=== PATIENT | female | born 1960 | race African-American/Black ===

== ENCOUNTER 2019-06-29 11:23 | Outpatient (CLI) | payer OTHER, SELFPAY ==
--- NOTE | ~2019-06-29 | XR_ITS ---
EXAMINATION: XR chest 2V EXAM DATE: 06/29/2019 11:47 INDICATION: Shortness of breath. TECHNIQUE: Frontal and lateral projections of the chest obtained and reviewed. There is no prior cecilia dy for comparison. FINDINGS: Severe chronic hyperinflation. Small amount of biapical scarring. The lungs are clear. Th ere are no pleural effusions. The cardiomediastinal silhouette is within normal limits. There is no pneumothorax suspected. There is aortic arterial sclerosis. Bones appear mildly osteopenic. IMPRESSION: 1. No acute cardiopulmonary findings. 2. Hyperinflation. 3. Possible osteopenia. Reviewed, dictated and finalized at location B. ING REPRESENTATIVE
== END 2019-06-29 11:24 | disposition home or self-care (01) ==
LOC: ANHIMG 11:31
PROVIDERS: PCP Internal Medicine; Visit Provider Internal Medicine
DX: R06.00 Dyspnea, unspecified (principal); F10.21 Alcohol dependence, in remission; Z87.891 Personal history of nicotine dependence; Z68.21 Body mass index [BMI] 21.0-21.9, adult
CPT/HCPCS: 71046

== ENCOUNTER 2019-09-09 15:32 | Emergency (ER) | payer OTHER, SELFPAY ==
[2019-09-09 15:32] VITALS: BP 184/92; PULSE 97; RESP 16; TEMP 36.3; O2SAT 100
[2019-09-09 15:44] VITALS: PULSE 91
[2019-09-09 15:45] VITALS: O2SAT 98
--- NOTE | 2019-09-09 15:56 | ED.SEIZURE ---
HPI - Seizure General Chief Complaint: Seizure Stated Complaint: SZ Time Seen by Provider: 09/09/19 15:53 Source: patient, EMS and old records reviewed (none) Mode of arrival: EMS History of Present Illness HPI Narrative: 58 m presents following a reported sz not witnessed by ems but reported to last a minute or so known h/o sx but hasn't been here reports no injury, not incont unsure when her last episode was among her belongings is a empty bottle of keppra which would have run out ~ 3 weeks ago if taken correctly no prior illness currently w/o complaints MD complaint: seizure Onset (ago): hour(s) Trauma: No Seizure History: Yes Related Data Home Medications Medication Instructions Recorded Confirmed albuterol sulfate 2 puff INHALATION QID 09/09/19 09/09/19 levetiracetam 1,000 mg PO BID 09/09/19 09/09/19 loperamide 2 mg PO Q6H PRN 09/09/19 09/09/19 metoprolol tartrate 25 mg PO DAILY 09/09/19 09/09/19 naproxen 500 mg PO BID 09/09/19 09/09/19 omeprazole 40 mg PO DAILY 09/09/19 09/09/19 trazodone 50 mg PO BID 09/09/19 09/09/19 Allergies Allergy/AdvReac Type Severity Reaction Status Date / Time No Known Allergies Allergy Verified 09/09/19 15:38 Review of Systems Constitutional: Constitutional: Denies chills and Denies fever(s) Eyes: Eyes: Denies change in vision Cardiovascular: Cardiovascular: Denies chest pain Respiratory: Respiratory: Denies cough and Denies dyspnea Gastrointestinal: Gastrointestinal: Denies diarrhea and Denies vomiting Neurologic: Denies headache(s), Denies focal weakness and Denies numbness PMFSH Social History Social History Gender identity (if verbalized by the patient): Female Exam Const: General: no acute distress, well developed and alert Nutritional Appearance: well nourished Orientation/consciousness: Other orientation findings (Alert) HENMT: Head: normal to inspection, normocephalic, atraumatic and no contusions Ears: external ears normal General nose exam: No nasal discharge present and no epistaxis Face and sinus: face symmetric Mouth: Yes lip normal, Yes tongue normal and Yes moist mucous membranes Throat: other (No exudate, no erythema) Eyes: Conjunctivae: conjunctivae normal Sclera: sclerae normal Pupils: Equal, round and reactive pupils present EOM: EOMs intact bilaterally Neck: Neck: full ROM, no lymphadenopathy and supple Thyroid: thyroid normal Chest: Chest palpation & inspection: no tenderness Resp: Effort & Inspection: normal respiratory effort Auscultation: clear to auscultation bilaterally, no rales, no rhonchi, no wheezes and other (breath sounds equal) Cardio: Rate: regular rate Rhythm: regular rhythm Heart sounds: no gallops and no murmurs GI: Inspection: non-distended GI Palp: No abdominal tenderness and Yes Soft to palpation Auscultation: other (bowel sounds present) Back/Spine/Pelvis: Back: no CVA tenderness Thoracic/Lumbar Spine: thoracic and lumbar spine normal to inspection Skin: General skin exam: normal color and no rashes or lesions noted Neuro: General: moves all extremities, no focal motor deficits and CN's II-XI intact bilaterally Cranial nerves: Yes facial symmetry Speech: normal speech Motor exam (neuro): Motor abnormalities not present Extrem: General: normal to inspection, full ROM and no pedal edema Psych: Appearance: disheveled Affect: normal affect Course Vital Signs Vital signs: Vital Signs Temperature 36.3 C L 09/09/19 15:32 Pulse Rate 97 09/09/19 15:32 Respiratory Rate 16 09/09/19 15:32 Blood Pressure 184/92 H 09/09/19 15:32 Pulse Oximetry 100 09/09/19 15:32 Temperature 36.3 C L 09/09/19 15:32 Pulse Rate 91 09/09/19 15:44 Respiratory Rate 16 09/09/19 15:32 Blood Pressure 184/92 H 09/09/19 15:32 Pulse Oximetry 98 09/09/19 15:45 MDM - Seizure Lab Data Result diagrams: 09/09/19 16:06
[2019-09-09 16:12] LABS: Basophils Percent Auto 0.4 % (0.2-1.2); Eosinophils Percent Auto 0.6 % (0-4.4); Hematocrit 37.7 % (37.0-47.0); Hemoglobin 11.9 g/dL (12.0-15.0); Immature Granulocyte Absolute 0.02 K/mm3 (0.00-0.031); Immature Granulocyte Percent A 0.4 % (0-0.5); Lymphocytes Absolute Auto 1.84 K/mm3 (0.9-3.2); Lymphocytes Percent Auto 35.1 % (18.3-44.2); Mean Corpuscular HGB Conc 31.6 g/dl (32-36); Mean Corpuscular Hemoglobin 27.3 pg (26-34); Mean Corpuscular Volume 86.5 fl (80-100); Mean Platelet Volume 10.1 fl (7.4-10.4); Monocytes Absolute Auto 0.3 K/mm3 (0.1-0.6); Monocytes Percent Auto 6.1 % (2.6-8.5); Neutrophils Percent Auto 57.4 % (45.5-73.1); Platelet Count Result 242 k/mm3 (150-375); Red Blood Count 4.36 M/mm3 (4.2-5.4); Red Cell Distribution Width 14.6 % (11.5-14.5); White Blood Count 5.2 K/mm3 (4.5-10.0)
[2019-09-09] MEDS: levETIRAcetam 500MG/NACL 100ML 500 MG/100 ML BAG 400 MG IVPB (16:18)
[2019-09-09] MEDS: levETIRAcetam 1000MG/NACL100ML 1,000 MG/100 ML BAG 400 MG IVPB (16:18)
[2019-09-09 16:24] LABS: Blood Urea Nitrogen 16 mg/dL (7-17); Calcium 9.6 mg/dL (8.4-10.2); Carbon Dioxide 25 mmol/L (22-30); Chloride 104 mmol/L (98-107); Estimated CRCL calculation 64 ml/min; Estimated Glomerular Filt Rate > 60; Glucose 99 mg/dL (65-105); Potassium 3.6 mmol/L (3.4-5.0); Sodium 138 mmol/L (137-145)
[2019-09-09 16:54] VITALS: BP 156/95; PULSE 79; RESP 20; O2SAT 98
== END 2019-09-09 17:05 | disposition home or self-care (01) ==
PROVIDERS: Emergency Provider Emergency Medicine; PCP Internal Medicine
DX: G40.909 Epilepsy, unspecified, not intractable, without status epilepticus (principal)
CPT/HCPCS: 36415; 80048; 85025; 96365; 99284; J1953

== ENCOUNTER 2019-11-08 19:07 | Inpatient (IN) | payer OTHER, SELFPAY ==
--- NOTE | ~2019-11-08 | CT_ITS ---
EXAMINATION: CT brain wo con EXAM DATE: 11/08/2019 20:33 INDICATION: Seizures. History of aneurysm. TECHNIQUE: Spiral CT of the head was performed without contrast. Axial, coronal and sagittal images were reviewed. Patient was scanned twice, due to patient motion. The dose-length product (DLP) for th is examination was 908.00 mGy-cm. The exposure was tailored according to patient size, and iterative reconstruction (ASIR) was used as additional dose reduction technique. There is no prior study for comparison. FINDINGS: Right MCA trifurcation region aneurysm clip with large overlying craniotomy, large amount o f right frontotemporal encephalomalacia likely from prior aneurysm rupture. There is no acute intrapa renchymal hemorrhage. No evidence of intraparenchymal brain mass lesion. Small old left cerebellar i nfarction. No evidence of acute infarction. Please note that initial head CT has limited sensitivity for small or acute infarctions. There is mild periventricular and subcortical hypodensity, nonspecif ic but probably related to small vessel ischemic disease. There is mild prominence of the sulci and ventricles related to cerebral atrophy. There is intracranial carotid arteriosclerosis. There are no extra-axial collections. There is no mass effect or midline shift. The orbits are unremarkable. Soft tissue is unremarkable. The visualized sinuses and mastoid air cells are well aerated. IMPRESSION: 1. Right frontotemporal encephalomalacia, aneurysm clip, surgical changes. 2. 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 3. Mild age-related findings. Reviewed, dictated and finalized at location A.
--- NOTE | ~2019-11-08 | XR_ITS ---
EXAMINATION: XR chest 1V portable EXAM DATE: 11/08/2019 20:35 INDICATION: Seizure. TECHNIQUE: Portable AP frontal chest x-ray was obtained. Comparison is made to prior examination from 06/29/2019. FINDINGS: The lungs are clear. There are no pleural effusions. Cardiac silhouette is prominent but magnified on this AP technique. There is no pneumothorax suspected. The bones are osteopenic. The re are bony degenerative changes. Mild hyperinflation. IMPRESSION: 1. No acute cardiopulmonary findings. 2. Bones appear osteopenic for age. 3. Hyperinflation. Reviewed, dictated and finalized at location A.
--- NOTE | ~2019-11-08 | CT_ITS ---
EXAMINATION: CT brain wo con DATE: 11/11/2019 03:47 INDICATION: Seizure. History of CVA. TECHNIQUE: Computed tomography (CT) of the head was performed without intravenous contrast. The dose- length product was 605.33 mGy-cm. The mA was adjusted according to patient size. Iterative reconstruc tion technique was employed. COMPARISON: CT dated 11/08/2019 FINDINGS: There are surgical changes of right frontal-temporal no acute intracranial hemorrhage, infa rction, mass or mass effect. Basilar cisterns are patent. No ventriculomegaly. There is a right front al octavia hole. Paranasal sinuses and mastoids are unremarkable. Craniotomy with underlying encephaloma lacia. Chronic right frontal lobe infarction. There are clips of the right middle cerebral artery. IMPRESSION: 1. No acute intracranial abnormality. No significant change. Reviewed, dictated and finalized at location A.
[2019-11-08 19:12] VITALS: BP 167/132; PULSE 147; PULSE 153; RESP 26; TEMP 36.8; O2SAT 99
[2019-11-08] MEDS: LORAZEPAM INJ 2 MG/ML VIAL (19:18)
--- NOTE | 2019-11-08 19:28 | ECG_ITS ---
Measurements Intervals [place] Rate: 143 P: 77 CT: 118 QRS: 20 QRSD: 77 T: 80 QT: 327 QTc: 506 Interpretive Statements SINUS OR ECTOPIC ATRIAL TACHYCARDIA WITH SHORT CT INTERVAL VENTRICULAR PREMATURE COMPLEX NONSPECIFIC ST & T-WAVE ABNORMALITY- ANTEROLAT/LAT LEADS BASELINE WANDER- V4-V6 ABNORMAL ECG Electronically Signed On 11-09-2019 7:05:49 CDT by Shaun Greene D.O.
[2019-11-08 19:31] VITALS: BP 157/97; PULSE 145; RESP 21; O2SAT 93
[2019-11-08] MEDS: SODIUM CHLORIDE 0.9% IV 1,000 ML 999 ML IV CONT (19:36)
--- NOTE | 2019-11-08 19:46 | ED.SEIZURE ---
HPI - Seizure General Chief Complaint: Seizure Stated Complaint: seizure Time Seen by Provider: 11/08/19 19:11 History of Present Illness HPI Narrative: Patient is a 59-year-old female who presents ER due to having a seizure. Upon arrival patient began seizing again. Diffuse body jerking with eyes deviated to the left. Patient initially unresponsive to sternal rub. Patient then started to come out of the seizure and was readily alert and oriented to self/place/year. She reports compliance with her Keppra. She still looking towards her left side despite answering questions. Accu-Chek was in the 120s for EMS. Seizure History: Yes Related Data Home Medications Medication Instructions Recorded Confirmed albuterol sulfate 2 puff INHALATION QID 09/09/19 09/09/19 levetiracetam 1,000 mg PO BID 09/09/19 09/09/19 loperamide 2 mg PO Q6H PRN 09/09/19 09/09/19 metoprolol tartrate 25 mg PO DAILY 09/09/19 09/09/19 naproxen 500 mg PO BID 09/09/19 09/09/19 omeprazole 40 mg PO DAILY 09/09/19 09/09/19 trazodone 50 mg PO BID 09/09/19 11/08/19 Allergies Allergy/AdvReac Type Severity Reaction Status Date / Time No Known Allergies Allergy Verified 09/09/19 15:38 Review of Systems Review of Systems: ROS unobtainable: Yes unobtainable due to medical condition PMFSH Past Medical History Medical History (Updated 11/08/19 @ 22:46 by Butch Muhammad MD) Brain aneurysm Hypertension Seizure disorder Surgical History Surgical History (Updated 11/08/19 @ 19:49 by Butch Muhammad MD) Surgical history unknown Social History Social History Gender identity (if verbalized by the patient): Female Exam Narrative: Exam Narrative: GENERAL: Seizine, well-nourished. HEAD: Normocephalic, atraumatic. EYES: PERRL and eyes deviating to the left. ENT: Mucous membranes moist. CHEST: Clear to auscultation. No respiratory distress. HEART: Tachycardic and regular. Normal peripheral pulses. ABDOMEN: Soft, nontender, nondistended, normal active bowel sounds. EXTREMITIES: Weakness in the left upper and lower extremity. No edema. SKIN: Warm, dry, no rash. NEURO: Diffuse body jerking, no extension/flexion, eyes deviated to the left. Oriented x 3. Course Course Emergency Course: Range of motion return to the upper and lower extremity on the left. Likely Rusty's paralysis from seizure. Patient at neurologic baseline. Vital Signs Vital signs: Vital Signs Temperature 98.2 F 11/08/19 19:12 Pulse Rate 147 H 11/08/19 19:12 Respiratory Rate 26 H 11/08/19 19:12 Blood Pressure 167/132 H 11/08/19 19:12 Pulse Oximetry 99 11/08/19 19:12 Temperature 97.3 F L 11/08/19 22:40 Pulse Rate 102 H 11/08/19 22:40 Respiratory Rate 19 11/08/19 22:40 Blood Pressure 186/89 H 11/08/19 22:40 Pulse Oximetry 99 11/08/19 22:40 MDM - Seizure Lab Data Result diagrams: 11/08/19 19:40 11/08/19 19:40 Labs: Lab Results 11/08/19 11/08/19 11/08/19 Range/Units 19:40 19:40 19:40 WBC 6.8 (4.5-10.0) K/mm3 RBC 4.70 (4.2-5.4) M/mm3 Hgb 13.3 (12.0-15.0) g/dL Hct 41.4 (37.0-47.0) % MCV 88.1 (80-100) fl MCH 28.3 (26-34) pg MCHC 32.1 (32-36) g/dl RDW 15.7 H (11.5-14.5) % Plt Count 270 (150-375) k/mm3 MPV 10.3 (7.4-10.4) fl Immature Gran % (Auto) 0.3 (0-0.5) % Neut % (Auto) 38.8 L (45.5-73.1) % Lymph % (Auto) 51.3 H (18.3-44.2) % [place] % (Auto) 8.4 (2.6-8.5) % Eos % (Auto) 0.9 (0-4.4) % Baso % (Auto) 0.3 (0.2-1.2) % Lymph # (Auto) 3.47 H (0.9-3.2) K/mm3 [place] # (Auto) 0.6 (0.1-0.6) K/mm3 Eos # (Auto) 0.1 (0-0.3) K/mm3 Baso # (Auto) 0.0 (0.0-0.1) K/mm3 Abs Immat Gran (auto) 0.02 (0.00-0.031) K/mm3 Absolute Neuts (auto) 2.6 (1.3-6.7) K/mm3 Absolute Nucleated RBC 0.0 (0.0-0.012) K/mm3 Nucleated RBC % 0.0 (0.0-0.2) % Sodium 147 H (137-14
[2019-11-08 19:52] LABS: Basophils Percent Auto 0.3 % (0.2-1.2); Eosinophils Absolute Auto 0.1 K/mm3 (0-0.3); Eosinophils Percent Auto 0.9 % (0-4.4); Hematocrit 41.4 % (37.0-47.0); Hemoglobin 13.3 g/dL (12.0-15.0); Immature Granulocyte Absolute 0.02 K/mm3 (0.00-0.031); Immature Granulocyte Percent A 0.3 % (0-0.5); Lymphocytes Absolute Auto 3.47 K/mm3 (0.9-3.2); Lymphocytes Percent Auto 51.3 % (18.3-44.2); Mean Corpuscular HGB Conc 32.1 g/dl (32-36); Mean Corpuscular Hemoglobin 28.3 pg (26-34); Mean Corpuscular Volume 88.1 fl (80-100); Mean Platelet Volume 10.3 fl (7.4-10.4); Monocytes Absolute Auto 0.6 K/mm3 (0.1-0.6); Monocytes Percent Auto 8.4 % (2.6-8.5); Neutrophils Absolute Auto 2.6 K/mm3 (1.3-6.7); Neutrophils Percent Auto 38.8 % (45.5-73.1); Platelet Count Result 270 k/mm3 (150-375); Red Cell Distribution Width 15.7 % (11.5-14.5); White Blood Count 6.8 K/mm3 (4.5-10.0)
[2019-11-08 20:04] LABS: Ethanol < 10 mg/dL (<10)
[2019-11-08 20:09] LABS: Albumin Level 4.6 g/dL (3.5-5.1); Alkaline Phosphatase 118 U/L (38-126); Aspartate Amino Transferase 34 U/L (14-36); Bilirubin,Total 0.5 mg/dL (0.2-1.3); Blood Urea Nitrogen 17 mg/dL (7-17); Carbon Dioxide 24 mmol/L (22-30); Chloride 110 mmol/L (98-107); Estimated CRCL calculation 63 ml/min; Estimated Glomerular Filt Rate > 60; Glucose 115 mg/dL (65-105); Potassium 4.6 mmol/L (3.4-5.0); Sodium 147 mmol/L (137-145)
[2019-11-08 20:12] LABS: Alanine Aminotransferase 20 U/L (4-35)
[2019-11-08 21:32] LABS: Add Urine Microscopic? YES; Appearance Urine Clear (Clear); Bacteria Urine Trace /hpf; Bilirubin Urine Negative (Negative); Blood Urine 3+ (Negative); Color Urine Yellow (Yellow); Glucose Urine UA Negative (Negative); Ketones Urine Negative (Negative); Leukocyte Esterase Ur 2+ LEU/UL (Negative); Mucus Urine Rare /lpf; Nitrate Urine Positive (Negative); Protein Urine 2+ mg/dL (Negative); RBC Urine >75 /hpf (0-2); Specific Grav Ur 1.018 (1.001-1.035); Squamous Epithelial Cell Urine Rare /hpf (Few); Urobilinogen Urine Negative mg/dL (<2.0); WBC Urine 51-75 /hpf
[2019-11-08 21:42] LABS: Amphetamine Screen Urine Negative (Negative); Barbiturate Screen Urine Negative (Negative); Benzodiazepines Screen Urine Positive (Negative); Cannabinoid Screen Urine Negative (Negative); Cocaine Screen Urine Negative (Negative); Methadone Screen Urine Negative (Negative); Opiate Screen Urine Negative (Negative); Phencyclidine Screen Urine Negative (Negative)
[2019-11-08 22:01] VITALS: BP 161/95; PULSE 102; RESP 26; TEMP 36.4; O2SAT 97
[2019-11-08 22:40] VITALS: BP 186/89; PULSE 102; RESP 19; TEMP 36.3; O2SAT 99
[2019-11-08] MEDS: levETIRAcetam 1000MG/NACL100ML 1,000 MG/100 ML BAG 400 MG IVPB (22:53)
[2019-11-08 23:02] VITALS: BP 197/97; PULSE 101; RESP 27; O2SAT 98
[2019-11-08] MEDS: LORAZEPAM INJ 2 MG/ML VIAL 1 MG IV PUSH (23:12)
[2019-11-08 23:22] VITALS: BP 154/94; PULSE 115; RESP 22; O2SAT 100
--- NOTE | 2019-11-08 23:23 | PC.NURSE ---
pt had another seizure in bed lasting around 35 seconds. edp notified.
[2019-11-08 23:55] LABS: Glucose Point of Care 109 (65-105)
[2019-11-09] VITALS (12 sets, daily range): BP systolic 140–164; BP diastolic 65–92; PULSE 70–116; RESP 16–22; TEMP 36.5–36.9; O2SAT 95–100; BMI 22.6
[2019-11-09] MEDS: levETIRAcetam 500MG/NACL 100ML 500 MG/100 ML BAG 400 MG IVPB (00:47)
[2019-11-09] MEDS: SODIUM CHLORIDE 0.9% IV 1,000 ML 100 ML IV CONT ×2 (02:33→15:50)
--- NOTE | 2019-11-09 03:00 | PC.NURSE ---
59 y/o female admitted for seizure activity and treatment of urinary tract infection. Patient alert and verbal upon arrival from emergency department. Speech clear, PERRL. No evidence of seizure activity noted at this time. Monitoring closely.
[2019-11-09 06:56] LABS: Basophils Percent Auto 0.3 % (0.2-1.2); Eosinophils Absolute Auto 0.1 K/mm3 (0-0.3); Eosinophils Percent Auto 0.7 % (0-4.4); Hematocrit 34.2 % (37.0-47.0); Hemoglobin 10.9 g/dL (12.0-15.0); Immature Granulocyte Absolute 0.02 K/mm3 (0.00-0.031); Immature Granulocyte Percent A 0.3 % (0-0.5); Lymphocytes Absolute Auto 2.71 K/mm3 (0.9-3.2); Lymphocytes Percent Auto 39.6 % (18.3-44.2); Mean Corpuscular HGB Conc 31.9 g/dl (32-36); Mean Corpuscular Hemoglobin 27.5 pg (26-34); Mean Corpuscular Volume 86.1 fl (80-100); Mean Platelet Volume 9.9 fl (7.4-10.4); Monocytes Absolute Auto 0.6 K/mm3 (0.1-0.6); Monocytes Percent Auto 8.3 % (2.6-8.5); Neutrophils Absolute Auto 3.5 K/mm3 (1.3-6.7); Neutrophils Percent Auto 50.8 % (45.5-73.1); Platelet Count Result 229 k/mm3 (150-375); Red Blood Count 3.97 M/mm3 (4.2-5.4); Red Cell Distribution Width 15.6 % (11.5-14.5); White Blood Count 6.8 K/mm3 (4.5-10.0)
[2019-11-09 07:04] LABS: Blood Urea Nitrogen 13 mg/dL (7-17); Calcium 8.8 mg/dL (8.4-10.2); Carbon Dioxide 25 mmol/L (22-30); Chloride 111 mmol/L (98-107); Estimated CRCL calculation 77 ml/min; Estimated Glomerular Filt Rate > 60; Glucose 89 mg/dL (65-105); Magnesium 1.7 mg/dL (1.6-2.3); Potassium 3.4 mmol/L (3.4-5.0); Sodium 139 mmol/L (137-145)
[2019-11-09] MEDS: ALBUTEROL SULFATE (*SP) AEROSOL 1 PUFF 2 PUFF INHALATION ×4 (08:51→19:28)
[2019-11-09] MEDS: levETIRAcetam 500 MG TABLET 1500 MG PO ×2 (09:20→20:16)
[2019-11-09] MEDS: POTASSIUM CHLORIDE 20 MEQ TABLET 40 MEQ PO (09:20)
[2019-11-09] MEDS: METOPROLOL TARTRATE 25 MG TABLET PO (09:21)
[2019-11-09] MEDS: PANTOPRAZOLE 40 MG TABLET PO (09:21)
[2019-11-09] MEDS: ASPIRIN 81 MG CHEWABLE TABLET PO (09:22)
[2019-11-09] MEDS: NAPROXEN 500 MG TABLET PO ×2 (09:22→17:21)
[2019-11-09] MEDS: TRAZODONE HCL 50 MG TABLET PO ×2 (09:22→17:21)
--- NOTE | 2019-11-09 14:20 | PM.IMHP ---
H&P: HPI History of Present Illness Chief complaint: seizures Narrative: Rosalba Workman is a 59 year old female again [place] female with history of traumatic brain injury and had developed seizure patient presented emergency department with seizures and while in the emergency depart patient had a seizure activity and was started on Keppra 1000 mg IV, patient was able to provide some history she was alert and oriented however patient continued to have seizure neurologist was consulted recommended to give extra dose of Keppra 500 mg and patient was admitted for further evaluation patient had a CT scan head 1. Right frontotemporal encephalomalacia, aneurysm clip, surgical changes. 2. 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 3. Mild age-related findings. scan did not any acute injury, currently patient is alert and oriented cell unable to provide detailed review of symptom to exactly what led for her to developed seizures however patient does states this is been compliant with her medication, patient presented emergency department in August with similar symptoms and at that time her Keppra bottle was empty and had not been taking her medication, most likely patient has not been taking her medication now developed seizures, will continue to monitor the patient, will have a PT OT evaluate the patient, patient will be seen by neurologist and further recommendation to follow Review of Systems Review of Systems: ROS unobtainable: Yes unobtainable due to medical condition PMFSH Past Medical History Medical History (Updated 11/08/19 @ 22:46 by Butch Muhammad MD) Brain aneurysm Hypertension Seizure disorder Surgical History Surgical History (Updated 11/08/19 @ 19:49 by Butch Muhammad MD) Surgical history unknown Social History Social History Smoking packs per day: 1 Smoking cigarettes per day: 20.0 Years smoked: 30 Smoking pack-years: 30.00 Smoking status: Former smoker Tobacco type: cigarettes Second hand tobacco smoke exposure: No Smoking end date: 09/01/19 Alcohol intake: former Substance use: former Gender identity (if verbalized by the patient): Female Spiritual care concerns: No Meds Home Medications and Allergies Home Medications Medication Instructions Recorded Confirmed Type albuterol sulfate 2 puff INHALATION QID 09/09/19 11/09/19 History levetiracetam [Keppra] 1,000 mg PO BID #60 tablet 09/09/19 11/08/19 Rx loperamide 2 mg PO Q6H PRN 09/09/19 11/09/19 History metoprolol tartrate 25 mg PO DAILY 09/09/19 11/09/19 History naproxen 500 mg PO BID 09/09/19 11/09/19 History omeprazole 40 mg PO DAILY 09/09/19 11/09/19 History trazodone 50 mg PO BID 09/09/19 11/08/19 History aspirin 81 mg PO DAILY 11/09/19 11/09/19 History Allergies Allergy/AdvReac Type Severity Reaction Status Date / Time No Known Allergies Allergy Verified 11/08/19 23:11 Vital Signs Vital Signs - 24 hr 11/08/19 19:12 11/08/19 19:31 11/08/19 22:01 Temperature 98.2 F 97.5 F L Pulse Rate 153 H 145 H 102 H Respiratory Rate 26 H 21 H 26 H Blood Pressure 167/132 H 157/97 H 161/95 H Pulse Oximetry 99 93 97 11/08/19 22:40 11/08/19 23:02 11/08/19 23:22 Temperature 97.3 F L Pulse Rate 102 H 101 H 115 H Respiratory Rate 19 27 H 22 H Blood Pressure 186/89 H 197/97 H 154/94 H Pulse Oximetry 99 98 100 11/09/19 00:47 11/09/19 01:05 11/09/19 02:41 Temperature 98.4 F 97.9 F Pulse Rate 101 H 84 87 Respiratory Rate 22 H 18 Blood Pressure 164/87 H 145/89 H Pulse Oximetry 100 95 11/09/19 04:00 11/09/19 06:00 11/09/19 08:00 Temperature 97.7 F Pulse Rate 83 89 94 Respiratory Rate 18 Blood Pressure 144/92 H Pulse Oximetry 95 11/09/19 09:21 Temperature Pulse Rate 88 Respiratory Rate Blood Pressure Pulse Oximetry Exam Const: General: comfortable and no acute distress HENMT: General nose exam: Normal nares present Eyes
[2019-11-10] VITALS (10 sets, daily range): BP systolic 159–167; BP diastolic 76–87; PULSE 70–104; RESP 16–20; TEMP 36.4–36.7; O2SAT 98–100
[2019-11-10] MEDS: SODIUM CHLORIDE 0.9% IV 1,000 ML 100 ML IV CONT (02:30)
--- NOTE | 2019-11-10 06:13 | CONS_ITS ---
DATE OF CONSULTATION: HISTORY OF PRESENT ILLNESS: A 59-year-old lady, admitted to the hospital through the emergency room for the complaint of recurrence of the seizure. Seizure was described as jerking of the both upper and lower extremities with eyes deviating to the left side and though initially she was found to be unresponsive. She initially started coming out of the seizure and then went back into the seizure resulting in the hospitalization and giving the extra dose of Keppra in the ER as well. At that time, her blood sugar was 120 as per the EMS. The patient carries a diagnosis of seizure disorder with Levetiracetam 1000 mg twice a day, loperamide 2 mg q.6 hours p.r.n., metoprolol 25 mg daily, naproxen 500 twice a day, omeprazole 40 mg daily, trazodone 50 mg twice a day. ALLERGIES: SHE IS NOT ALLERGIC TO ANY MEDICATION. PAST MEDICAL HISTORY: Her past history is consistent with the history of brain aneurysm with hypertension and residual seizure disorder. At the time of admission to the hospital, she was afebrile with temp of 98.2, pulse 147, respiration 26, blood pressure 167/132, with pulse ox 99%. Blood pressure has come down to 186/89 subsequently. She was found to have CBC with WBC 6.8, hemoglobin 13.3, platelet count 270. Basic metabolic panel with sodium 147, potassium 4.6, chloride 110, CO2 24, BUN 17, creatinine 0.8 with a blood sugar of 115. PHYSICAL EXAMINATION: HEENT: Head normocephalic with no cranial bruit. Ear, nose, throat examination normal. Eyes deviated to the left side. NECK: Supple with no meningeal signs. HEART: Regular with no murmur. LUNGS: Clear to occasional rhonchi. ABDOMEN: Soft, nontender. Normal bowel sounds with no organomegaly. NEUROLOGICAL: She was in postictal state. The patient has been to this hospital in August. Pertinent investigation up until now include the CT scan of the head, which documented right frontotemporal encephalomalacia with aneurysmal clip and surgical changes in addition to a small old left cerebral infarction. Chest x-ray negative with bone appearing osteopenic for the age and at this stage, she is receiving Keppra 1500 mg q.12 hours, aspirin 81 mg daily, metoprolol 25 daily, trazodone 50 twice a day, Protonix 40 mg daily. IMPRESSION: Focal seizure with secondary generalization with obvious documentation of focal insult to the right frontotemporal area secondary to aneurysmal clip in the past resulting in the encephalomalacia. If the higher dose of Keppra does not control her seizure, we might end up getting the 2nd convulsion, but at this stage, I would like to use the only monotherapy with higher doses. JOSE JIN M.D. WOOD TANK ERECTOR WOOD TANK ERECTOR D I MT: Teagan
[2019-11-10 06:20] LABS: Hematocrit 32.8 % (37.0-47.0); Hemoglobin 10.8 g/dL (12.0-15.0); Mean Corpuscular HGB Conc 32.9 g/dl (32-36); Mean Corpuscular Hemoglobin 28.3 pg (26-34); Mean Corpuscular Volume 86.1 fl (80-100); Mean Platelet Volume 9.7 fl (7.4-10.4); Platelet Count Result 216 k/mm3 (150-375); Red Blood Count 3.81 M/mm3 (4.2-5.4); Red Cell Distribution Width 15.7 % (11.5-14.5); White Blood Count 4.7 K/mm3 (4.5-10.0)
[2019-11-10 06:30] LABS: Alanine Aminotransferase 11 U/L (4-35); Albumin Level 3.4 g/dL (3.5-5.1); Alkaline Phosphatase 88 U/L (38-126); Aspartate Amino Transferase 27 U/L (14-36); Bilirubin,Total 0.4 mg/dL (0.2-1.3); Blood Urea Nitrogen 10 mg/dL (7-17); Calcium 8.7 mg/dL (8.4-10.2); Carbon Dioxide 21 mmol/L (22-30); Chloride 111 mmol/L (98-107); Estimated CRCL calculation 89 ml/min; Estimated Glomerular Filt Rate > 60; Glucose 86 mg/dL (65-105); Potassium 3.5 mmol/L (3.4-5.0); Sodium 137 mmol/L (137-145)
[2019-11-10] MEDS: ASPIRIN 81 MG CHEWABLE TABLET PO (08:28)
[2019-11-10] MEDS: levETIRAcetam 500 MG TABLET 1500 MG PO ×2 (08:29→20:36)
[2019-11-10] MEDS: NAPROXEN 500 MG TABLET PO ×2 (08:29→16:44)
[2019-11-10] MEDS: PANTOPRAZOLE 40 MG TABLET PO (08:29)
[2019-11-10] MEDS: TRAZODONE HCL 50 MG TABLET PO ×2 (08:30→16:44)
[2019-11-10] MEDS: METOPROLOL TARTRATE 25 MG TABLET PO (08:30)
--- NOTE | 2019-11-10 09:05 | WPDNEUROPN ---
Progress Note: A&P Assessment and Plan (1) Seizure as late effect of cerebrovascular accident (CVA): Code(s): I69.398 - Other sequelae of cerebral infarction; R56.9 - Unspecified convulsions Status: Acute Additional Plan stable on increased keppra treatment as such. Review of Systems Review of Systems: All systems reviewed & are unremarkable except as noted in HPI and below Exam Const: General: cooperative, comfortable, no acute distress, alert and awake Nutritional Appearance: average body habitus HENMT: Mouth: Yes Normal oral and palatal mucosa present Eyes: General: appearance normal, both eyes and all related structures Visual Santiago: abnormal by confrontation Periorbital: periorbital findings normal Eyelids: eyelids normal Conjunctivae: conjunctivae normal Sclera: sclerae normal Cornea: corneas normal Pupils: Equal, round and reactive pupils present EOM: EOMs intact bilaterally Neck: Neck: full ROM Resp: Effort & Inspection: normal respiratory effort and able to speak in complete sentences Auscultation: clear to auscultation bilaterally Cardio: Rate: regular rate Rhythm: regular rhythm GI: Auscultation: normal bowel sounds Skin: General skin exam: no rashes or lesions noted Neuro: General: oriented to person, oriented to place and moves all extremities Cranial nerves: Yes Equal, round and reactive pupils present, Yes Bilaterally intact EOM present, Yes Nystagmus not present, Yes Normal facial strength present, Yes Midline tongue present, Yes Ability to bilaterally rotate head present and Yes Ability to bilaterally elevate shoulders present Cognition (Neuro): abnormal cognition Speech: Abnormal speech present Gait exam (Neuro): Unable to assess gait Motor exam (neuro): Abnormal motor strength present Deep tendon reflexes (DTR's): Right triceps reflex intensity grade: 2+, Left triceps reflex intensity grade: 1+, Rt Biceps (C5, C6): 2+, Left biceps reflex intensity grade: 1+, Right brachioradialis reflex intensity grade: 2+, Left brachioradialis reflex intensity grade: 1+, Right patellar reflex intensity grade: 2+, Left patellar reflex intensity grade: 1+, Right ankle reflex intensity grade: 2+ and Left ankle reflex intensity grade: 1+ Plantar Reflex Responses: downgoing: right and upgoing (positive Babinski): left Extrem: General: normal to inspection Psych: Speech and movement: Slowed speech present (Psych) Affect: Labile affect present Attitude: cooperative Thought process: Circumstantial thought process present Thought content: Yes Normal thought content present Insight: Limited insight present (Psych) Judgement: Limited judgement present (Psych) Objective Data Vital Signs Vital Signs: Vital Signs - 24 hr 11/09/19 09:21 11/09/19 12:00 11/09/19 14:00 Temperature 36.6 C Pulse Rate 88 70 78 Respiratory Rate 18 Blood Pressure 140/80 Pulse Oximetry 99 11/09/19 16:00 11/09/19 20:00 11/09/19 22:00 Temperature 36.6 C Pulse Rate 72 70 81 Respiratory Rate 16 Blood Pressure 151/65 H Pulse Oximetry 100 11/10/19 00:00 11/10/19 04:00 11/10/19 06:00 Temperature 36.7 C Pulse Rate 73 73 85 Respiratory Rate 20 Blood Pressure 159/76 H Pulse Oximetry 98 11/10/19 08:30 Temperature Pulse Rate 104 H Respiratory Rate Blood Pressure Pulse Oximetry Intake/Output Intake/Output: Intake & Output 11/07/19 11/08/19 11/09/19 11/10/19 23:59 23:59 23:59 23:59 Intake Total 1100 1650 1480 Output Total 425 Balance 1100 1225 1480 Meds/Results Medications: Active Medications Generic Name Dose Route Start Last Admin Trade Name Freq PRN Reason Stop Dose Admin Acetaminophen 650 mg 11/09/19 00:03 Tylenol Tablet PO Q4H PRN Mild Pain (1-3) or Fever Albuterol 2 puff 11/09/19 08:00 11/09/19 19:28 Proventil Hfa INHALATION 2 puff QIDRT ISABELLA Administration Aspirin 81 mg 11/09/19 09:00 11/10/19 08:28 Aspirin Chewable PO
[2019-11-10] MEDS: ALBUTEROL SULFATE (*SP) AEROSOL 1 PUFF 2 PUFF INHALATION ×4 (09:16→21:10)
[2019-11-10] MEDS: POTASSIUM CHLORIDE 20 MEQ TABLET 40 MEQ PO (11:59)
--- NOTE | 2019-11-10 15:30 | PM.IMPN ---
Progress Note: A&P Assessment and Plan (1) Breakthrough seizure: Code(s): G40.919 - Epilepsy, unspecified, intractable, without status epilepticus Status: Acute Assessment and Plan: 11/10/19 15:30 Rosalba Workman is a 59 year old female again Italian female with history of traumatic brain injury and had developed seizure patient presented emergency department with seizures and while in the emergency depart patient had a seizure activity and was started on Keppra 1000 mg IV, patient was able to provide some history she was alert and oriented however patient continued to have seizure neurologist was consulted recommended to give extra dose of Keppra 500 mg and patient was admitted for further evaluation patient had a CT scan head 1. Right frontotemporal encephalomalacia, aneurysm clip, surgical changes. 2. 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 3. Mild age-related findings. scan did not any acute injury, currently patient is alert and oriented cell unable to provide detailed review of symptom to exactly what led for her to developed seizures however patient does states this is been compliant with her medication, patient presented emergency department in August with similar symptoms and at that time her Keppra bottle was empty and had not been taking her medication, most likely patient has not been taking her medication now developed seizures, will continue to monitor the patient, will have a PT OT evaluate the patient, patient will be seen by neurologist and further recommendation to follow, today patient was more alert oriented was able to participate in physical therapy, the more seizure while in the hospital, patient's family is unable to take care her plan is to transfer the patient to [facility] Subjective Date/time seen: 11/10/19 15:30 Rosalba Workman is a 59 year old female again Italian female with history of traumatic brain injury and had developed seizure patient presented emergency department with seizures and while in the emergency depart patient had a seizure activity and was started on Keppra 1000 mg IV, patient was able to provide some history she was alert and oriented however patient continued to have seizure neurologist was consulted recommended to give extra dose of Keppra 500 mg and patient was admitted for further evaluation patient had a CT scan head 1. Right frontotemporal encephalomalacia, aneurysm clip, surgical changes. 2. 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 3. Mild age-related findings. scan did not any acute injury, currently patient is alert and oriented cell unable to provide detailed review of symptom to exactly what led for her to developed seizures however patient does states this is been compliant with her medication, patient presented emergency department in August with similar symptoms and at that time her Keppra bottle was empty and had not been taking her medication, most likely patient has not been taking her medication now developed seizures, will continue to monitor the patient, will have a PT OT evaluate the patient, patient will be seen by neurologist and further recommendation to follow, today patient was more alert oriented was able to participate in physical therapy, the more seizure while in the hospital, patient's family is unable to take care her plan is to transfer the patient to [facility] Review of Systems Review of Systems: All systems reviewed & are unremarkable except as noted in HPI and below Exam Const: General: comfortable and no acute distress HENMT: General nose exam: Normal nares present Eyes: General: appearance normal, both eyes and all related structures Sclera: sclerae normal Neck: Neck: supple Resp: Effort & Inspection: normal respiratory effort Auscultation: clear to auscultation bilaterally Cardio: Rate: regular rate Rhythm: regular rhythm GI: Auscultation: normal bowel sounds Skin: General skin exam: normal color Neuro: Speech: normal speech
[2019-11-11] VITALS (19 sets, daily range): BP systolic 120–170; BP diastolic 68–98; PULSE 74–117; RESP 16–18; TEMP 36.3–36.7; O2SAT 92–100
[2019-11-11] MEDS: LORAZEPAM INJ 2 MG/ML VIAL IV PUSH (03:15)
[2019-11-11 03:21] LABS: Glucose Point of Care 84 (65-105)
--- NOTE | 2019-11-11 03:28 | PC.NURSE ---
bus repair supervisor Drea notified patient had a seizure and Dr. Leal at bedside.
--- NOTE | 2019-11-11 03:31 | PM.EVENT ---
Event Note Event Note Event Note: Called to bedside to evaluate this 59 year old female who is here for seizure disorder as she started to exhibit seizure like activity. The patient received 2 mg of IV ativan and on my arrival to bedside the patient is no longer seizing. Seizure lasted less than 5 minutes in duration. She did lose urine. Following her seizure she appeared to have left sided facial droop but moving all four extremities. Bedside blood glucose was normal. The patient's pulse ox was >95%. We will obtain a STAT CT brain. Check morning labs now including electrolytes. I will reassess as needed.
--- NOTE | 2019-11-11 03:35 | PC.NURSE ---
Patient to CT scan per bed.
--- NOTE | 2019-11-11 03:49 | PC.NURSE ---
Patient back from CT scan per bed.
--- NOTE | 2019-11-11 03:54 | PC.NURSE ---
Maggie BRADY and Jennifer BRADY entered room because patient's bed alarm sounded. I, Quin BRADY, was then called into the room. Patient was having a seizure which lasted for around 40 seconds. Patient stopped seizing and 2 mg of PRN Ativan was given for the seizure. Dr. Leal ordered a stat CT of the brain. Quin BRADY followed patient to CT scan and returned to floor.
[2019-11-11 04:09] LABS: Hematocrit 36.3 % (37.0-47.0); Hemoglobin 11.7 g/dL (12.0-15.0); Mean Corpuscular HGB Conc 32.2 g/dl (32-36); Mean Corpuscular Hemoglobin 27.9 pg (26-34); Mean Corpuscular Volume 86.4 fl (80-100); Mean Platelet Volume 9.7 fl (7.4-10.4); Platelet Count Result 219 k/mm3 (150-375); Red Cell Distribution Width 15.5 % (11.5-14.5); White Blood Count 4.9 K/mm3 (4.5-10.0)
[2019-11-11 04:23] LABS: Alanine Aminotransferase 12 U/L (4-35); Albumin Level 3.9 g/dL (3.5-5.1); Alkaline Phosphatase 92 U/L (38-126); Aspartate Amino Transferase 27 U/L (14-36); Bilirubin,Total 0.5 mg/dL (0.2-1.3); Blood Urea Nitrogen 11 mg/dL (7-17); Calcium 9.2 mg/dL (8.4-10.2); Carbon Dioxide 24 mmol/L (22-30); Chloride 107 mmol/L (98-107); Estimated CRCL calculation 77 ml/min; Estimated Glomerular Filt Rate > 60; Glucose 88 mg/dL (65-105); Magnesium 1.7 mg/dL (1.6-2.3); Phosphorus 4.3 mg/dL (2.5-4.5); Potassium 4.1 mmol/L (3.4-5.0); Sodium 137 mmol/L (137-145)
[2019-11-11] MEDS: METOPROLOL TARTRATE 25 MG TABLET PO (07:58)
[2019-11-11] MEDS: NAPROXEN 500 MG TABLET PO ×2 (07:58→16:59)
[2019-11-11] MEDS: TRAZODONE HCL 50 MG TABLET PO ×2 (07:58→16:59)
[2019-11-11] MEDS: ASPIRIN 81 MG CHEWABLE TABLET PO (07:58)
[2019-11-11] MEDS: levETIRAcetam 500 MG TABLET 1500 MG PO (07:58)
[2019-11-11] MEDS: PANTOPRAZOLE 40 MG TABLET PO (07:58)
--- NOTE | 2019-11-11 08:24 | PCOTNOTE ---
Attempted to see patient this am, however per physical therapy, nursing reported patient having seizure and given Ativan.
[2019-11-11] MEDS: ALBUTEROL SULFATE (*SP) AEROSOL 1 PUFF 2 PUFF INHALATION ×4 (08:38→19:57)
[2019-11-11] MEDS: levETIRAcetam 500 MG TABLET PO (11:14)
--- NOTE | 2019-11-11 11:32 | WPDNEUROPN ---
Progress Note: A&P Assessment and Plan (1) Seizure as late effect of cerebrovascular accident (CVA): Code(s): I69.398 - Other sequelae of cerebral infarction; R56.9 - Unspecified convulsions Status: Acute (2) Breakthrough seizure: Code(s): G40.919 - Epilepsy, unspecified, intractable, without status epilepticus Status: Acute Additional Plan break through seizure again add phenobarb Review of Systems Review of Systems: All systems reviewed & are unremarkable except as noted in HPI and below Exam Const: General: cooperative and no acute distress Eyes: General: appearance normal, both eyes and all related structures Neck: Neck: full ROM Resp: Effort & Inspection: able to speak in complete sentences Cardio: Rate: regular rate Rhythm: regular rhythm GI: Auscultation: normal bowel sounds Skin: General skin exam: no rashes or lesions noted Neuro: General: oriented to person Extrem: General: normal to inspection Objective Data Vital Signs Vital Signs: Vital Signs - 24 hr 11/10/19 12:00 11/10/19 14:00 11/10/19 16:00 Temperature 36.4 C L Pulse Rate 82 89 76 Respiratory Rate 16 Blood Pressure 167/87 H Pulse Oximetry 100 11/10/19 20:00 11/10/19 22:00 11/11/19 00:00 Temperature 36.4 C L Pulse Rate 73 70 74 Respiratory Rate 18 Blood Pressure 165/76 H Pulse Oximetry 98 11/11/19 02:00 11/11/19 03:12 11/11/19 03:20 Temperature 36.4 C L Pulse Rate 80 117 H 80 Respiratory Rate 18 18 Blood Pressure 162/86 H 170/97 H 169/73 H Pulse Oximetry 97 98 97 11/11/19 03:22 11/11/19 03:25 11/11/19 03:50 Temperature 36.5 C Pulse Rate 78 82 Respiratory Rate 18 18 Blood Pressure 166/72 H 154/68 H 152/98 H Pulse Oximetry 96 99 11/11/19 04:00 11/11/19 04:23 11/11/19 05:08 Temperature 36.3 C L 36.3 C L Pulse Rate 80 78 77 Respiratory Rate 16 18 Blood Pressure 163/81 H 168/82 H 170/79 H Pulse Oximetry 100 100 93 11/11/19 06:00 11/11/19 07:58 11/11/19 08:00 Temperature 36.4 C Pulse Rate 80 80 99 Respiratory Rate 18 Blood Pressure 133/79 Pulse Oximetry 96 95 11/11/19 08:30 Temperature Pulse Rate Respiratory Rate Blood Pressure Pulse Oximetry 92 Intake/Output Intake/Output: Intake & Output 11/08/19 11/09/19 11/10/19 11/11/19 23:59 23:59 23:59 23:59 Intake Total 1100 1650 3500 210 Output Total 425 700 Balance 1100 1225 3500 -490 Meds/Results Medications: Active Medications Generic Name Dose Route Start Last Admin Trade Name Freq PRN Reason Stop Dose Admin Acetaminophen 650 mg 11/09/19 00:03 Tylenol Tablet PO Q4H PRN Mild Pain (1-3) or Fever Albuterol 2 puff 11/09/19 08:00 11/11/19 10:58 Proventil Hfa INHALATION 2 puff QIDRT ISABELLA Administration Aspirin 81 mg 11/09/19 09:00 11/11/19 07:58 Aspirin Chewable PO 81 mg DAILY ISABELLA Administration Levetiracetam 2,000 mg 11/11/19 21:00 Keppra Tablet PO Q12HR ISABELLA Loperamide HCl 2 mg 11/09/19 07:38 Loperamide Hcl PO Q6H PRN Diarrhea Metoprolol Tartrate 25 mg 11/09/19 09:00 11/11/19 07:58 Lopressor PO 25 mg DAILY ISABELLA Administration Naproxen 500 mg 11/09/19 09:00 11/11/19 07:58 Naproxen PO 500 mg BID ISABELLA Administration Ondansetron HCl 4 mg 11/09/19 00:03 Zofran Inj IV PUSH Q4H PRN Nausea Pantoprazole Sodium 40 mg 11/09/19 09:00 11/11/19 07:58 Protonix PO 40 mg QAM ISABELLA Administration Trazodone HCl 50 mg 11/09/19 09:00 11/11/19 07:58 Desyrel PO 50 mg BID ISABELLA Administration Radiology Results: ITS Impressions Chest X-Ray 11/08/19 20:41 IMPRESSION: 1. No acute cardiopulmonary findings. 2. Bones appear osteopenic for age. 3. Hyperinflation. Head CT 11/11/19 07:55 IMPRESSION: 1. No acute intracranial abnormality. No significant change. Labs Labs: Laboratory Results - last 24 hr 11/11/19 11/11/19 11/11/19
--- NOTE | 2019-11-11 16:20 | PM.IMPN ---
Progress Note: A&P Assessment and Plan (1) Breakthrough seizure: Code(s): G40.919 - Epilepsy, unspecified, intractable, without status epilepticus Status: Acute Assessment and Plan: 11/11/19 16:20 Rosalba Workman is a 59 year old female again Chilean female with history of traumatic brain injury and had developed seizure patient presented emergency department with seizures and while in the emergency depart patient had a seizure activity and was started on Keppra 1000 mg IV, patient was able to provide some history she was alert and oriented however patient continued to have seizure neurologist was consulted recommended to give extra dose of Keppra 500 mg and patient was admitted for further evaluation patient had a CT scan head 1. Right frontotemporal encephalomalacia, aneurysm clip, surgical changes. 2. 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 3. Mild age-related findings. scan did not any acute injury, currently patient is alert and oriented cell unable to provide detailed review of symptom to exactly what led for her to developed seizures however patient does states this is been compliant with her medication, patient presented emergency department in August with similar symptoms and at that time her Keppra bottle was empty and had not been taking her medication, most likely patient has not been taking her medication now developed seizures, will continue to monitor the patient, will have a PT OT evaluate the patient, patient will be seen by neurologist and further recommendation to follow, today patient was more alert oriented was able to participate in physical therapy, the more seizure while in the hospital, patient's family is unable to take care her plan is to transfer the patient to long-term, on 11/09 patient's symptoms were improving and plan was to discharge the patient today however last night patient had a seizure while taking Keppra 1500 mg twice a day, I discussed with neurologist will increase Keppra to 2000 mg b.i.d. this the maximum dose before adding another medication, since patient has a traumatic brain injury will require additional medication control seizures, today is patient is quite somnolent Subjective Date/time seen: 11/11/19 16:20 Rosalba Workman is a 59 year old female again Chilean female with history of traumatic brain injury and had developed seizure patient presented emergency department with seizures and while in the emergency depart patient had a seizure activity and was started on Keppra 1000 mg IV, patient was able to provide some history she was alert and oriented however patient continued to have seizure neurologist was consulted recommended to give extra dose of Keppra 500 mg and patient was admitted for further evaluation patient had a CT scan head 1. Right frontotemporal encephalomalacia, aneurysm clip, surgical changes. 2. 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 3. Mild age-related findings. scan did not any acute injury, currently patient is alert and oriented cell unable to provide detailed review of symptom to exactly what led for her to developed seizures however patient does states this is been compliant with her medication, patient presented emergency department in August with similar symptoms and at that time her Keppra bottle was empty and had not been taking her medication, most likely patient has not been taking her medication now developed seizures, will continue to monitor the patient, will have a PT OT evaluate the patient, patient will be seen by neurologist and further recommendation to follow, today patient was more alert oriented was able to participate in physical therapy, the more seizure while in the hospital, patient's family is unable to take care her plan is to transfer the patient to long-term, on 11/09 patient's symptoms were improving and plan was to discharge the patient today however last night patient had a seizure while taking Keppra 1500 mg twice a day, I discussed with shamika
[2019-11-11 16:51] LABS: SARS-CoV-2 RNA PCR Negative
[2019-11-11] MEDS: levETIRAcetam 500 MG TABLET 2000 MG PO (20:40)
[2019-11-12] VITALS (10 sets, daily range): BP systolic 117–133; BP diastolic 67–80; PULSE 68–127; RESP 16; TEMP 36.3–36.9; O2SAT 97–98
[2019-11-12 05:42] LABS: Hematocrit 36.3 % (37.0-47.0); Hemoglobin 11.9 g/dL (12.0-15.0); Mean Corpuscular HGB Conc 32.8 g/dl (32-36); Mean Corpuscular Hemoglobin 28.2 pg (26-34); Mean Platelet Volume 10.2 fl (7.4-10.4); Platelet Count Result 241 k/mm3 (150-375); Red Blood Count 4.22 M/mm3 (4.2-5.4); Red Cell Distribution Width 15.4 % (11.5-14.5); White Blood Count 4.8 K/mm3 (4.5-10.0)
[2019-11-12 06:00] LABS: Alanine Aminotransferase 11 U/L (4-35); Albumin Level 3.7 g/dL (3.5-5.1); Alkaline Phosphatase 87 U/L (38-126); Aspartate Amino Transferase 26 U/L (14-36); Bilirubin,Total 0.5 mg/dL (0.2-1.3); Blood Urea Nitrogen 15 mg/dL (7-17); Calcium 8.9 mg/dL (8.4-10.2); Carbon Dioxide 21 mmol/L (22-30); Chloride 108 mmol/L (98-107); Estimated CRCL calculation 68 ml/min; Estimated Glomerular Filt Rate > 60; Glucose 92 mg/dL (65-105); Potassium 3.6 mmol/L (3.4-5.0); Sodium 137 mmol/L (137-145)
[2019-11-12] MEDS: ASPIRIN 81 MG CHEWABLE TABLET PO (08:18)
[2019-11-12] MEDS: NAPROXEN 500 MG TABLET PO ×2 (08:19→16:14)
[2019-11-12] MEDS: METOPROLOL TARTRATE 25 MG TABLET PO (08:19)
[2019-11-12] MEDS: levETIRAcetam 500 MG TABLET 2000 MG PO ×2 (08:19→20:30)
[2019-11-12] MEDS: TRAZODONE HCL 50 MG TABLET PO ×2 (08:19→16:14)
[2019-11-12] MEDS: PANTOPRAZOLE 40 MG TABLET PO (08:19)
[2019-11-12] MEDS: ALBUTEROL SULFATE (*SP) AEROSOL 1 PUFF 2 PUFF INHALATION ×4 (08:23→20:01)
--- NOTE | 2019-11-12 10:53 | PM.IMPN ---
Progress Note: A&P Assessment and Plan (1) Breakthrough seizure: Code(s): G40.919 - Epilepsy, unspecified, intractable, without status epilepticus Status: Acute Assessment and Plan: 11/12/19 10:53 Rosalba Workman is a 59 year old female again Tajik female with history of traumatic brain injury and had developed seizure patient presented emergency department with seizures and while in the emergency depart patient had a seizure activity and was started on Keppra 1000 mg IV, patient was able to provide some history she was alert and oriented however patient continued to have seizure neurologist was consulted recommended to give extra dose of Keppra 500 mg and patient was admitted for further evaluation patient had a CT scan head 1. Right frontotemporal encephalomalacia, aneurysm clip, surgical changes. 2. 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 3. Mild age-related findings. scan did not any acute injury, currently patient is alert and oriented cell unable to provide detailed review of symptom to exactly what led for her to developed seizures however patient does states this is been compliant with her medication, patient presented emergency department in August with similar symptoms and at that time her Keppra bottle was empty and had not been taking her medication, most likely patient has not been taking her medication now developed seizures, will continue to monitor the patient, will have a PT OT evaluate the patient, patient will be seen by neurologist and further recommendation to follow, today patient was more alert oriented was able to participate in physical therapy, the more seizure while in the hospital, patient's family is unable to take care her plan is to [facility] patient [facility] jail, on 11/09 patient's symptoms were improving and plan was to discharge the patient. on 11/10 however last night patient had a seizure while taking Keppra 1500 mg twice a day, I discussed with neurologist will increase Keppra to 2000 mg b.i.d. this is the maximum dose Keppra before adding another medication, since patient has a traumatic brain injury will require additional medication control seizures, today is patient is is more alert and able to participate in physical therapy patient has not had any seizure since yesterday patient is clinically stable we may transfer the patient to jail today if it is available Subjective Date/time seen: 11/12/19 10:53 Rosalba Workman is a 59 year old female again Tajik female with history of traumatic brain injury and had developed seizure patient presented emergency department with seizures and while in the emergency depart patient had a seizure activity and was started on Keppra 1000 mg IV, patient was able to provide some history she was alert and oriented however patient continued to have seizure neurologist was consulted recommended to give extra dose of Keppra 500 mg and patient was admitted for further evaluation patient had a CT scan head 1. Right frontotemporal encephalomalacia, aneurysm clip, surgical changes. 2. 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 3. Mild age-related findings. scan did not any acute injury, currently patient is alert and oriented cell unable to provide detailed review of symptom to exactly what led for her to developed seizures however patient does states this is been compliant with her medication, patient presented emergency department in August with similar symptoms and at that time her Keppra bottle was empty and had not been taking her medication, most likely patient has not been taking her medication now developed seizures, will continue to monitor the patient, will have a PT OT evaluate the patient, patient will be seen by neurologist and further recommendation to follow, today patient was more alert oriented was able to participate in physical therapy, the more seizure while in the hospital, patient's family is unable to take care her plan is to transfer the patient to n
--- NOTE | 2019-11-12 15:18 | PM.DS ---
DS: Admitting Diagnosis Admitting Diagnosis Admitting Diagnosis: Epilepsy, unspecified, intractable, without status epilepticus DS: Summary Time Spent with Patient Time attestation: Total time spent providing and/or coordinating discharge services: DS: Data Data Completed and Pending Labs on day of discharge: Labs from last 24 hours 11/12/19 11/12/19 11/10/19 05:11 05:11 16:55 WBC 4.8 RBC 4.22 Hgb 11.9 L Hct 36.3 L MCV 86.0 MCH 28.2 MCHC 32.8 RDW 15.4 H Plt Count 241 MPV 10.2 Sodium 137 Potassium 3.6 Chloride 108 H Carbon Dioxide 21 L BUN 15 Creatinine 0.80 Estim Creat Clear Calc 68 Estimated GFR > 60 Glucose 92 Calcium 8.9 Total Bilirubin 0.5 AST 26 ALT 11 Alkaline Phosphatase 87 Total Protein 7.0 Albumin 3.7 SARS-CoV-2 RNA (RT-PCR) Negative Discharge Plan Discharge Attending physician on discharge: Aroldo Andujar Consulting providers: Nayan Michael Discharging Clinician: Aroldo Andujar Patient Disposition: NH Group Home/Asst Living Activity: as tolerated Diet: heart healthy Discharge Instructions: patient to follow up with her neurologist and primary care provider as soon as possible. Patient Instructions: Antibiotic Form Stand Alone Forms: General Discharge Information Discharge Medications: New phenobarbital 97.2 mg Tablet 100 mg PO HS Qty: 30 RF: 0 levetiracetam [Keppra] 500 mg Tablet 2,000 mg PO Q12HR Qty: 240 RF: 0 Continued loperamide 2 mg Capsule 2 mg PO Q6H PRN (Reason: Diarrhea) RF: 0 trazodone 50 mg Tablet 50 mg PO BID RF: 0 omeprazole 40 mg Capsule,Delayed Release(Dr/Ec) 40 mg PO DAILY RF: 0 albuterol sulfate 90 mcg/actuation Hfa Aerosol Inhaler 2 puff INHALATION QID RF: 0 naproxen 500 mg Tablet 500 mg PO BID RF: 0 metoprolol tartrate 25 mg Tablet 25 mg PO DAILY RF: 0 aspirin 81 mg tablet,chewable 81 mg PO DAILY RF: 0 Discontinued levetiracetam [Keppra] 1,000 mg tablet 1,000 mg PO BID Qty: 60 RF: 0 Date of admission: 06/11/20 12:57 Primary Care Provider: Melsisa,Fito Lira Admitting Provider: Barry Leal Attending physician on admission: Barry Leal Condition: Stable Quality VTE Prophylaxis VTE prophylaxis: mechanical ordered
[2019-11-13] VITALS (8 sets, daily range): BP systolic 124–136; BP diastolic 62–81; PULSE 74–106; RESP 16–18; TEMP 36.4–36.9; O2SAT 96–97
[2019-11-13 07:03] LABS: Hematocrit 35.9 % (37.0-47.0); Hemoglobin 11.6 g/dL (12.0-15.0); Mean Corpuscular HGB Conc 32.3 g/dl (32-36); Mean Corpuscular Hemoglobin 28.2 pg (26-34); Mean Corpuscular Volume 87.1 fl (80-100); Platelet Count Result 229 k/mm3 (150-375); Red Blood Count 4.12 M/mm3 (4.2-5.4); Red Cell Distribution Width 15.5 % (11.5-14.5)
[2019-11-13 07:17] LABS: Alanine Aminotransferase 10 U/L (4-35); Albumin Level 3.8 g/dL (3.5-5.1); Alkaline Phosphatase 84 U/L (38-126); Aspartate Amino Transferase 25 U/L (14-36); Bilirubin,Total 0.4 mg/dL (0.2-1.3); Blood Urea Nitrogen 19 mg/dL (7-17); Calcium 8.9 mg/dL (8.4-10.2); Carbon Dioxide 25 mmol/L (22-30); Chloride 105 mmol/L (98-107); Estimated CRCL calculation 68 ml/min; Estimated Glomerular Filt Rate > 60; Glucose 92 mg/dL (65-105); Potassium 3.7 mmol/L (3.4-5.0); Sodium 137 mmol/L (137-145)
[2019-11-13] MEDS: PANTOPRAZOLE 40 MG TABLET PO (08:02)
[2019-11-13] MEDS: METOPROLOL TARTRATE 25 MG TABLET PO (08:03)
[2019-11-13] MEDS: NAPROXEN 500 MG TABLET PO (08:05)
[2019-11-13] MEDS: TRAZODONE HCL 50 MG TABLET PO (08:06)
[2019-11-13] MEDS: ASPIRIN 81 MG CHEWABLE TABLET PO (08:06)
[2019-11-13] MEDS: levETIRAcetam 500 MG TABLET 2000 MG PO (08:06)
[2019-11-13] MEDS: ALBUTEROL SULFATE (*SP) AEROSOL 1 PUFF 2 PUFF INHALATION ×2 (08:27→12:32)
--- NOTE | 2019-11-13 13:08 | PM.DS ---
DS: Admitting Diagnosis Admitting Diagnosis Admitting Diagnosis: Epilepsy, unspecified, intractable, without status epilepticus DS: Discharge Diagnosis Discharge Diagnosis (1) Breakthrough seizure: Code(s): G40.919 - Epilepsy, unspecified, intractable, without status epilepticus Status: Acute Assessment and Plan: 11/12/19 10:53 Rosalba Workman is a 59 year old female again Ugandan female with history of traumatic brain injury and had developed seizure patient presented emergency department with seizures and while in the emergency depart patient had a seizure activity and was started on Keppra 1000 mg IV, patient was able to provide some history she was alert and oriented however patient continued to have seizure neurologist was consulted recommended to give extra dose of Keppra 500 mg and patient was admitted for further evaluation patient had a CT scan head 1. Right frontotemporal encephalomalacia, aneurysm clip, surgical changes. 2. 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 3. Mild age-related findings. scan did not any acute injury, currently patient is alert and oriented cell unable to provide detailed review of symptom to exactly what led for her to developed seizures however patient does states this is been compliant with her medication, patient presented emergency department in August with similar symptoms and at that time her Keppra bottle was empty and had not been taking her medication, most likely patient has not been taking her medication now developed seizures, will continue to monitor the patient, will have a PT OT evaluate the patient, patient will be seen by neurologist and further recommendation to follow, today patient was more alert oriented was able to participate in physical therapy, the more seizure while in the hospital, patient's family is unable to take care her plan is to transfer the patient to sn[facility], on 11/09 patient's symptoms were improving and plan was to discharge the patient. on 11/10 however last night patient had a seizure while taking Keppra 1500 mg twice a day, I discussed with neurologist will increase Keppra to 2000 mg b.i.d. this is the maximum dose Keppra before adding another medication, since patient has a traumatic brain injury will require additional medication control seizures, today is patient is is more alert and able to participate in physical therapy patient has not had any seizure since yesterday patient is clinically stable we may transfer the patient to [facility] today if it is available DS: Summary Hospital Course Reason for hospitalization: Narrative: Rosalba Workman is a 59 year old female again Ugandan female with history of traumatic brain injury and had developed seizure patient presented emergency department with seizures and while in the emergency depart patient had a seizure activity and was started on Keppra 1000 mg IV, patient was able to provide some history she was alert and oriented however patient continued to have seizure neurologist was consulted recommended to give extra dose of Keppra 500 mg and patient was admitted for further evaluation patient had a CT scan head 1. Right frontotemporal encephalomalacia, aneurysm clip, surgical changes. 2. 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 3. Mild age-related findings. scan did not any acute injury, currently patient is alert and oriented cell unable to provide detailed review of symptom to exactly what led for her to developed seizures however patient does states this is been compliant with her medication, patient presented emergency department in August with similar symptoms and at that time her Keppra bottle was empty and had not been taking her medication, most likely patient has not been taking her medication now developed seizures, will continue to monitor the patient, will have a PT OT evaluate the patient, patient will be seen by neurologist and further recommendation to follow Hospital Course: 11/12/19 10:53 Cecelia
--- NOTE | 2019-11-13 15:49 | PC.NURSE ---
Family member Tanja was called @[id number] and notified of the patient being transferred to [facility].
== END 2019-11-13 15:40 | DRG 53 ==
LOC: ANHED 22:47 → ANH3MEDSUR 11-09 00:25
PROVIDERS: Admitting Provider Family Medicine; Emergency Provider Emergency Medicine; PCP Internal Medicine; Visit Provider Family Medicine
DX: G40.909 Epilepsy, unspecified, not intractable, without status epilepticus (principal); I69.398 Other sequelae of cerebral infarction; G40.89 Other seizures; Z11.59 Encounter for screening for other viral diseases; I10 Essential (primary) hypertension; Z87.820 Personal history of traumatic brain injury; Z87.891 Personal history of nicotine dependence
CPT/HCPCS: 36415; 51701; 70450; 71045; 80048; 80053; 80307; 81001; 83735; 84100; 85025; 85027; 87077; 87086; 87088; 87186; 87635; 93005; 94640; 96360; 96361; 96365; 96374; 96375; 96376; 97110; 97116; 97161; 97165; 97535; 99285; A9270; C9803; G0378; G0379; J0696; J1953; J2060; J7030; U0003

== ENCOUNTER 2021-06-27 14:02 | Emergency (ER) | payer OTHER, SELFPAY ==
--- NOTE | ~2021-06-27 | XR_ITS ---
XR lumbar spine 2-3V DATE: 06/27/2021 17:50 INDICATION: Fell. Lower back and tailbone pain TECHNIQUE: AP, lateral, coned lateral lumbosacral views COMPARISON: None FINDINGS: There is diffuse osteopenia. There is mild levoscoliosis of the lower thoracic and lumbar spine. No fracture or bone destruction of the lumbar spine. The lumbar pedicles are intact. Lumbar and upper sacral interspaces are relatively well preserved. The sacroiliac joints are intact. Abdominal aortic and iliac arterial calcification. IMPRESSION: Osteopenia No fracture or spondylolisthesis is evident Reviewed, dictated and finalized at location A. ILLE MACHINE OPERATOR
--- NOTE | ~2021-06-27 | XR_ITS ---
XR hip BI 2V w AP pelvis DATE: 06/27/2021 17:51 INDICATION: Fall. Hip pain. TECHNIQUE: AP pelvis. AP and lateral views of each hip. COMPARISON: None FINDINGS: Diffuse osteopenia. The pubic symphysis and sacroiliac joints are intact. No pelvic fracture or bone destruction is evide nt. Compression screw and liz of proximal left femur for an old left femoral fracture. No recent fracture or dislocation of either hip is evident. IMPRESSION: Status post ORIF old left proximal femoral fracture Diffuse osteopenia Reviewed, dictated and finalized at location A. ING SUPERVISOR
--- NOTE | ~2021-06-27 | XR_ITS ---
XR chest 2V DATE: 06/27/2021 17:49 INDICATION: Fall, weakness. Hypertension. Smoker. TECHNIQUE: PA and lateral views COMPARISON: 11/08/2019 portable AP chest FINDINGS: Prominent COPD as evidenced by bilateral hyperinflation, flattening the diaphragm, increase d retrosternal airspace. There is minimal infiltrate or mild fibrotic change in the right upper lobe and right apex. No pulmon lainey consolidation, pleural effusion, pulmonary vascular congestion or pneumothorax is detected. Heart size is within normal range. There is aortic arch calcification. No hilar or mediastinal enlarg ement is evident. Diffuse osteopenia. Dextroscoliosis of the thoracic spine. There is mild anterior wedging and upper a nd lower thoracic vertebral body. IMPRESSION: COPD Minimal infiltrate or mild fibrotic change in the right upper lobe and right apex Reviewed, dictated and finalized at location A. ICE RIG OPERATOR IMPRESSION: COPD Minimal infiltrate or mild fibrotic change in the right upper lobe and right ap ex
[2021-06-27 14:25] VITALS: BP 153/86; PULSE 94; RESP 16; TEMP 36.4; O2SAT 99
[2021-06-27 15:32] VITALS: BP 141/76; PULSE 82; TEMP 36.2; O2SAT 100
[2021-06-27 16:45] VITALS: BP 138/86; PULSE 102; RESP 18; O2SAT 100
[2021-06-27 17:36] LABS: Basophils Percent Auto 0.4 % (0.2-1.2); Eosinophils Percent Auto 0.8 % (0-4.4); Hematocrit 33.5 % (37.0-47.0); Hemoglobin 10.7 g/dL (12.0-15.0); Immature Granulocyte Absolute 0.01 K/mm3 (0.00-0.031); Immature Granulocyte Percent A 0.2 % (0-0.5); Lymphocytes Absolute Auto 2.18 K/mm3 (0.9-3.2); Lymphocytes Percent Auto 45.7 % (18.3-44.2); Mean Corpuscular HGB Conc 31.9 g/dl (32-36); Mean Corpuscular Hemoglobin 28.6 pg (26-34); Mean Corpuscular Volume 89.6 fl (80-100); Mean Platelet Volume 9.6 fl (7.4-10.4); Monocytes Absolute Auto 0.3 K/mm3 (0.1-0.6); Monocytes Percent Auto 6.5 % (2.6-8.5); Neutrophils Absolute Auto 2.2 K/mm3 (1.3-6.7); Neutrophils Percent Auto 46.4 % (45.5-73.1); Platelet Count Result 215 k/mm3 (150-375); Red Blood Count 3.74 M/mm3 (4.2-5.4); Red Cell Distribution Width 14.4 % (11.5-14.5); White Blood Count 4.8 K/mm3 (4.5-10.0)
[2021-06-27 17:41] LABS: Add Urine Microscopic? YES; Appearance Urine Clear (Clear); Bacteria Urine 1+ /hpf; Bilirubin Urine Negative (Negative); Blood Urine Negative (Negative); Color Urine Yellow (Yellow); Glucose Urine UA Negative (Negative); Ketones Urine Negative (Negative); Leukocyte Esterase Ur 3+ LEU/UL (Negative); Mucus Urine Rare /lpf; Nitrate Urine Negative (Negative); Protein Urine Negative (Negative); Specific Grav Ur 1.013 (1.001-1.035); Squamous Epithelial Cell Urine Rare /hpf (Few); Urobilinogen Urine Negative mg/dL (<2.0); WBC Urine >75 /hpf
--- NOTE | 2021-06-27 18:15 | ED.FALL ---
HPI - Fall General Chief Complaint: Fall Stated Complaint: fall Time Seen by Provider: 06/27/21 16:51 Source: patient Mode of arrival: EMS Limitations: no limitations History of Present Illness HPI Narrative: This is a 60 year old female that presents to the ER after a ground level fall today with low back pain. Reports she was going to the bathroom and fell onto her bottom. She is unsure why she fell. Does not report any prodromal symptoms. Reports some low back pain since the fall. Denies hitting her head, loss of consciousness, chest pain, shortness of breath, vomiting, or focal weakness or numbness. Related Data Home Medications Medication Instructions Recorded Confirmed albuterol sulfate 2 puff INHALATION QID 09/09/19 11/09/19 loperamide 2 mg PO Q6H PRN 09/09/19 11/09/19 metoprolol tartrate 25 mg PO DAILY 09/09/19 11/09/19 naproxen 500 mg PO BID 09/09/19 11/09/19 omeprazole 40 mg PO DAILY 09/09/19 11/09/19 trazodone 50 mg PO BID 09/09/19 11/08/19 aspirin 81 mg PO DAILY 11/09/19 11/09/19 Allergies Allergy/AdvReac Type Severity Reaction Status Date / Time No Known Allergies Allergy Verified 11/08/19 23:11 Review of Systems Review of Systems: CONSTITUTIONAL: Denies fever CARDIOVASCULAR: Denies chest pain RESPIRATORY: Denies dyspnea. GASTROINTESTINAL: Denies vomiting MUSCULOSKELETAL: Reports back pain, joint pain, and myalgia. NEUROLOGIC: Denies numbness, or weakness. All systems reviewed & are unremarkable except as noted in HPI and below PMFSH Past Medical History Medical History (Updated 06/27/21 @ 18:34 by Angelica Pagan PA-C) Brain aneurysm Hypertension Seizure disorder Surgical History Surgical History (Updated 11/08/19 @ 19:49 by Butch Muhammad MD) Surgical history unknown Social History Social History Smoking packs per day: 1 Smoking cigarettes per day: 20.0 Years smoked: 30 Smoking pack-years: 30.00 Smoking status: Former smoker Tobacco type: cigarettes Second hand tobacco smoke exposure: No Smoking end date: 09/01/19 Alcohol intake: former Substance use: former Gender identity (if verbalized by the patient): Female Spiritual care concerns: No Exam Narrative: GENERAL: Well-appearing, well-nourished, and in no acute distress. HEAD: Normocephalic, atraumatic. EYES: PERRLA and EOMI. ENT: Nares clear, no rhinorrhea or epistaxis. Mucous membranes moist. Oropharynx without tonsillar hypertrophy exudate or other lesions. Bilateral TMs pearly maguire non-bulging NECK: Supple. No adenopathy or masses. No midline spinal tenderness CHEST: Clear to auscultation. No respiratory distress. No wheezes rales or rhonchi HEART: Regular rate and rhythm. No murmur heard. Normal peripheral pulses. BACK: No midline spinal tenderness EXTREMITIES: Normal range of motion. No edema or obvious deformity. SKIN: Warm, dry, no rash. NEURO: No focal deficits. Alert and oriented x3. CN II-XII grossly intact PSYCH: Normal mood and affect Course Vital Signs Vital signs: Vital Signs Temperature 97.5 F L 06/27/21 14:25 Pulse Rate 94 06/27/21 14:25 Respiratory Rate 16 06/27/21 14:25 Blood Pressure 153/86 H 06/27/21 14:25 Pulse Oximetry 99 06/27/21 14:25 Temperature 97.2 F L 06/27/21 15:32 Pulse Rate 102 H 06/27/21 16:45 Respiratory Rate 18 06/27/21 16:45 Blood Pressure 138/86 06/27/21 16:45 Pulse Oximetry 100 06/27/21 16:45 MDM - Fall MDM Narrative Medical decision making narrative: Patient presents to the emergency department after a ground-level fall today with low back pain. Was unsure why she fell. Although she does deny any prodromal symptoms. Denies hitting her head or loss of consciousness. No obvious signs of trauma on exam. She is afebrile and nontoxic-appearing. Her vitals are stable. CBC shows normocytic anemia with hemoglobin of 10.7. Metabolic panel without concerning findings. UA w
[2021-06-27 18:17] LABS: Alanine Aminotransferase 11 U/L (4-35); Albumin Level 3.9 g/dL (3.5-5.1); Alkaline Phosphatase 94 U/L (38-126); Anion Gap 5 mmol/L (8-16); Aspartate Amino Transferase 27 U/L (14-36); Bilirubin,Total 0.3 mg/dL (0.2-1.3); Blood Urea Nitrogen 11 mg/dL (7-17); Calcium 8.9 mg/dL (8.4-10.2); Carbon Dioxide 30 mmol/L (22-30); Chloride 105 mmol/L (98-107); Estimated CRCL calculation 89 ml/min; Estimated Glomerular Filt Rate > 60; Glucose 100 mg/dL (65-110); Potassium 3.8 mmol/L (3.4-5.0); Sodium 140 mmol/L (137-145)
== END 2021-06-27 19:35 | disposition home or self-care (01) ==
PROVIDERS: Physician Assistant; Emergency Provider Family Medicine
DX: S39.92XA Unspecified injury of lower back, initial encounter (principal); N30.00 Acute cystitis without hematuria; I10 Essential (primary) hypertension; G40.909 Epilepsy, unspecified, not intractable, without status epilepticus; Z87.891 Personal history of nicotine dependence; M85.88 Other specified disorders of bone density and structure, other site; Z79.82 Long term (current) use of aspirin; W18.30XA Fall on same level, unspecified, initial encounter
CPT/HCPCS: 36415; 71046; 72100; 73521; 80053; 81001; 85025; 87086; 87088; 96365; 99284; J0696

== ENCOUNTER 2021-07-16 17:14 | Emergency (ER) | payer OTHER, SELFPAY ==
--- NOTE | ~2021-07-16 | CT_ITS ---
EXAMINATION: CT brain wo con DATE: 07/16/2021 18:22 INDICATION: Seizure. Fall. TECHNIQUE: Computed tomography (CT) of the head was performed without intravenous contrast. Sagittal and coronal reconstructions were performed. The mA was adjusted according to patient size. Iterative reconstruction technique was employed. The dose-length product was 605.33 mGy-cm. COMPARISON: 11/11/2019 FINDINGS: No acute fracture. Old right frontotemporal craniotomy. Underlying region of encephalomalacia in the right frontal and temporal lobes and insula. Likely aneurysm clip in the region of the sylvian fissur e and right middle cerebral artery. Unchanged small right frontal subdural hygroma. No acute intracra nial hemorrhage, acute infarction or abnormal extra axial fluid collection. Small old left cerebellar infarct. Ventricles are normal and symmetric. No mass/mass effect. The orbits, paranasal sinuses and mastoid air cells are normal. Intracranial calcified cerebral atherosclerosis is noted. IMPRESSION: 1. No acute fracture or acute intracranial process. 2. 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 Correlate with clinical/surg ical history. 3. Small old left cerebellar infarct. Reviewed, dictated and finalized at location A. HER TUTOR IMPRESSION: 1. No acute fracture or acute intracranial process. 2. Right frontotemporal encephalomalacia likely related to prior ruptured aneur ysm given the presence of right middle cerebral artery aneurysm clip and overly ing craniotomy. Correlate with clinical/surgical history. 3. Small old left cerebellar infarct.
[2021-07-16 17:14] VITALS: BP 123/87; PULSE 108; RESP 18; TEMP 36.9; O2SAT 95
--- NOTE | 2021-07-16 17:23 | ECG_ITS ---
Measurements Intervals [place] Rate: 100 P: 71 [place]: 161 QRS: 11 QRSD: 82 T: 52 QT: 363 QTc: 470 Interpretive Statements SINUS TACHYCARDIA POSSIBLE LEFT ATRIAL ENLARGEMENT BORDERLINE ST-T WAVE ABNORMALITY- ANTERIOR LEADS BORDERLINE ECG Electronically Signed On 07-16-2021 20:13:52 COMMERCIAL FISHING VESSEL OPERATOR by Shaun Greene D.O.
[2021-07-16 17:35] LABS: Basophils Percent Auto 0.2 % (0.2-1.2); Eosinophils Percent Auto 0.7 % (0-4.4); Hemoglobin 11.3 g/dL (12.0-15.0); Immature Granulocyte Absolute 0.01 K/mm3 (0.00-0.031); Immature Granulocyte Percent A 0.2 % (0-0.5); Lymphocytes Absolute Auto 2.25 K/mm3 (0.9-3.2); Lymphocytes Percent Auto 49.2 % (18.3-44.2); Mean Corpuscular HGB Conc 33.2 g/dl (32-36); Mean Corpuscular Hemoglobin 29.7 pg (26-34); Mean Corpuscular Volume 89.5 fl (80-100); Mean Platelet Volume 10.7 fl (7.4-10.4); Monocytes Absolute Auto 0.4 K/mm3 (0.1-0.6); Monocytes Percent Auto 7.9 % (2.6-8.5); Neutrophils Absolute Auto 1.9 K/mm3 (1.3-6.7); Neutrophils Percent Auto 41.8 % (45.5-73.1); Platelet Count Result 267 k/mm3 (150-375); Red Cell Distribution Width 15.3 % (11.5-14.5); White Blood Count 4.6 K/mm3 (4.5-10.0)
--- NOTE | 2021-07-16 18:23 | ED.SEIZURE ---
HPI - Seizure General Chief Complaint: Fall Stated Complaint: SZ Time Seen by Provider: 07/16/21 18:14 Source: patient Mode of arrival: EMS Limitations: no limitations History of Present Illness HPI Narrative: Patient is a 60-year-old female complaining of a fall at home and a possible seizure causing the fall. Patient has a history of seizures and takes Keppra for it. Patient denies any symptoms prior to the fall.. Patient does not know why she fell, states that next thing she knew she was on the floor. Patient denies any head pain, dizziness, neck pain, chest pain, shortness of breath, abdominal pain, nausea, vomiting, diarrhea, fever or chills. Seizure History: Yes Related Data Home Medications Medication Instructions Recorded Confirmed duloxetine mg PO 07/16/21 furosemide 07/16/21 levetiracetam PO 07/16/21 melatonin mg 07/16/21 Allergies Allergy/AdvReac Type Severity Reaction Status Date / Time No Known Allergies Allergy Verified 07/16/21 17:21 Review of Systems Review of Systems: All systems reviewed & are unremarkable except as noted in HPI and below Constitutional: Constitutional: Denies body ache(s), Denies chills, Denies excessive sweating, Denies fatigue, Denies fever(s), Denies headache(s), Denies lethargy, Denies malaise, Denies weakness and Denies weight loss Eyes: Eyes: Denies blurry vision, Denies change in vision and Denies loss of vision ENT: Denies dizziness, Denies ear discharge, Denies headache(s), Denies lip swelling, Denies epistaxis, Denies nasal congestion, Denies neck pain, Denies throat swelling and Denies tongue swelling Cardiovascular: Cardiovascular: Denies chest pain, Denies chest pain at rest, Denies chest pain with activity, Denies diaphoresis, Denies rapid heart rate, Denies edema, Denies irregular heart rhythm, Denies lightheadedness, Denies palpitations, Denies dyspnea and Denies dyspnea on exertion Respiratory: Respiratory: Denies chest congestion, Denies cough, Denies hemoptysis, Denies dyspnea and Denies dyspnea on exertion Gastrointestinal: Gastrointestinal: Denies abdominal pain, Denies melena, Denies hematochezia, Denies diarrhea, Denies nausea, Denies vomiting and Denies hematemesis Musculoskeletal: Musculoskeletal: Denies abnormal gait, Denies deformity, Denies joint swelling, Denies limited range of motion, Denies neck pain and Denies numbness Neurologic: Denies Abnormal speech present, Denies abnormal gait, Denies confusion, Denies dizziness, Denies headache(s), Denies focal weakness, Denies loss of vision, Denies numbness, Denies Other visual disturbances, Denies Sensory deficit (Neuro) and Denies weakness Psychiatric: Psychiatric: Denies confusion, Denies depression, Denies auditory hallucinations, Denies homicidal ideation and Denies suicidal ideation Endocrine: Endocrine: Denies cold intolerance, Denies excessive sweating, Denies fatigue, Denies heat intolerance and Denies palpitations Hematologic/Lymphatic: Hematologic/Lymphatic: Denies easy bleeding and Denies easy bruising Allergic/Immunologic: Allergic/Immunologic: Denies lip swelling, Denies throat swelling and Denies tongue swelling PMFSH Past Medical History Medical History Brain aneurysm Hypertension Seizure disorder Surgical History Surgical History Surgical history unknown Social History Social History Smoking packs per day: 1 Smoking cigarettes per day: 20.0 Years smoked: 30 Smoking pack-years: 30.00 Smoking status: Former smoker Tobacco type: cigarettes Second hand tobacco smoke exposure: No Smoking end date: 09/01/19 Alcohol intake: former Substance use: former Gender identity (if verbalized by the patient): Female Spiritual care concerns: No Exam Const: General: cooperative, healthy appearing, c
[2021-07-16] MEDS: LACTATED RINGERS 1,000 ML 999 ML IV CONT (18:25)
[2021-07-16 18:26] LABS: Alanine Aminotransferase 35 U/L (4-35); Alkaline Phosphatase 102 U/L (38-126); Anion Gap 4 mmol/L (8-16); Aspartate Amino Transferase 43 U/L (14-36); Bilirubin,Total 0.3 mg/dL (0.2-1.3); Blood Urea Nitrogen 17 mg/dL (7-17); Calcium 8.7 mg/dL (8.4-10.2); Carbon Dioxide 28 mmol/L (22-30); Chloride 107 mmol/L (98-107); Estimated CRCL calculation 64 ml/min; Estimated Glomerular Filt Rate > 60; Glucose 112 mg/dL (65-110); Potassium 3.2 mmol/L (3.4-5.0); Sodium 139 mmol/L (137-145)
[2021-07-16 18:30] VITALS: BP 150/82; PULSE 89; RESP 26
[2021-07-16 18:44] VITALS: PULSE 93
[2021-07-16 19:04] LABS: Add Urine Microscopic? NO; Appearance Urine Clear (Clear); Bilirubin Urine Negative (Negative); Blood Urine Negative (Negative); Color Urine Straw (Yellow); Glucose Urine UA Negative (Negative); Ketones Urine Negative (Negative); Leukocyte Esterase Ur Negative LEU/UL (Negative); Nitrate Urine Negative (Negative); Protein Urine Negative (Negative); Specific Grav Ur 1.012 (1.001-1.035); Urobilinogen Urine Negative mg/dL (<2.0)
--- NOTE | 2021-07-16 19:28 | PC.NURSE ---
Handoff received from Leora BRADY. Patient found lying comfortably in ED stretcher. Calm and cooperative. AAOX4. Equal and unlabored resp. Skins is warm and dry. Vitals WNL. IV in place secured and patent. Pending lab results. Patient updated. Will continue to monitor patient.
[2021-07-16 19:31] VITALS: BP 158/84; PULSE 80; RESP 19; TEMP 36.3; O2SAT 99
[2021-07-16] MEDS: POTASSIUM CHLORIDE 20 MEQ PACKET (FOR LIQUID) 40 MEQ PO (20:12)
[2021-07-16 20:54] VITALS: BP 162/78; PULSE 83; RESP 20; TEMP 36.3; O2SAT 96
[2021-07-20 12:01] LABS: Levetiracetam Keppra <1.0 mcg/mL (12.0-46.0)
== END 2021-07-16 20:56 | disposition home or self-care (01) ==
PROVIDERS: Emergency Medicine; Emergency Provider Emergency Medicine
DX: G40.909 Epilepsy, unspecified, not intractable, without status epilepticus (principal); I10 Essential (primary) hypertension; Z87.891 Personal history of nicotine dependence; R00.0 Tachycardia, unspecified; R94.31 Abnormal electrocardiogram [ECG] [EKG]
CPT/HCPCS: 36415; 70450; 80053; 80177; 81003; 85025; 93005; 96360; 96361; 99284; A9270; J7120

== ENCOUNTER 2022-04-16 21:40 | Emergency (ER) | payer OTHER, SELFPAY ==
[2022-04-16] VITALS (7 sets, daily range): BP systolic 142–157; BP diastolic 84–100; PULSE 109–129; RESP 20–28; TEMP 36.4; O2SAT 92–97
[2022-04-16] MEDS: SODIUM CHLORIDE 0.9% IV 1,000 ML 999 ML IV CONT (22:46)
[2022-04-16] MEDS: levETIRAcetam 1000MG/NACL100ML 1,000 MG/100 ML BAG 400 MG IVPB (22:46)
[2022-04-16 22:58] LABS: Basophils Percent Auto 0.2 % (0.2-1.2); Hematocrit 39.3 % (37.0-47.0); Hemoglobin 12.7 g/dL (12.0-15.0); Immature Granulocyte Absolute 0.01 K/mm3 (0.00-0.031); Immature Granulocyte Percent A 0.1 % (0-0.5); Lymphocytes Absolute Auto 1.42 K/mm3 (0.9-3.2); Lymphocytes Percent Auto 17.4 % (18.3-44.2); Mean Corpuscular HGB Conc 32.3 g/dl (32-36); Mean Corpuscular Hemoglobin 28.5 pg (26-34); Mean Corpuscular Volume 88.3 fl (80-100); Mean Platelet Volume 9.4 fl (7.4-10.4); Monocytes Absolute Auto 0.6 K/mm3 (0.1-0.6); Monocytes Percent Auto 7.7 % (2.6-8.5); Neutrophils Absolute Auto 6.1 K/mm3 (1.3-6.7); Neutrophils Percent Auto 74.6 % (45.5-73.1); Platelet Count Result 322 k/mm3 (150-375); Red Blood Count 4.45 M/mm3 (4.2-5.4); Red Cell Distribution Width 14.5 % (11.5-14.5); White Blood Count 8.2 K/mm3 (4.5-10.0)
[2022-04-16 23:11] LABS: Alanine Aminotransferase 24 U/L (6-35); Albumin Level 4.9 g/dL (3.5-5.1); Alkaline Phosphatase 126 U/L (38-126); Anion Gap 13 mmol/L (8-16); Aspartate Amino Transferase 53 U/L (14-36); Bilirubin,Total 0.8 mg/dL (0.2-1.3); Blood Urea Nitrogen 17 mg/dL (7-17); Calcium 9.3 mg/dL (8.4-10.2); Carbon Dioxide 26 mmol/L (22-30); Chloride 100 mmol/L (98-107); Estimated CRCL calculation 78 ml/min; Estimated Glomerular Filt Rate > 60; Glucose 97 mg/dL (65-110); Potassium 4.2 mmol/L (3.4-5.0); Sodium 139 mmol/L (137-145)
[2022-04-16 23:44] LABS: Appearance Urine Clear (Clear); Bilirubin Urine Negative (Negative); Blood Urine Trace-lysed (Negative); Color Urine Yellow (Yellow); Glucose Urine UA Negative (Negative); Ketones Urine Negative (Negative); Leukocyte Esterase Ur Trace LEU/UL (Negative); Nitrate Urine Negative (Negative); Protein Urine Negative (Negative); Urobilinogen Urine 0.2 mg/dL (<2.0); pH Urine 5.5 (5.0-9.0)
[2022-04-16 23:47] LABS: Bacteria Urine 1+ /hpf; RBC Urine 0-2 /hpf (0-2); Squamous Epithelial Cell Urine Rare /hpf (Few); WBC Urine 16-20 /hpf
[2022-04-16 23:51] LABS: Add Urine Microscopic? YES
--- NOTE | 2022-04-17 00:05 | ED.GENADULT ---
HPI - General Adult General Chief complaint: Seizure Stated complaint: left leg pain that began this afternoon Time Seen by Provider: 04/16/22 22:14 History of Present Illness HPI narrative: Patient 61-year-old female who presents the emergency department with chief complaint of seizure. Per the patient's family the patient has history of seizures and ran out of her Keppra today and may have missed a dose of Keppra. The patient had a seizure at home and they report that she is normally somewhat confused. Patient denies chest pain denies pain anywhere. Related Data Home Medications Medication Instructions Recorded Confirmed duloxetine 60 mg capsule,delayed mg PO 07/16/21 release furosemide 40 mg tablet 07/16/21 levetiracetam 750 mg tablet PO 07/16/21 melatonin 5 mg capsule mg 07/16/21 Allergies Allergy/AdvReac Type Severity Reaction Status Date / Time No Known Allergies Allergy Verified 04/16/22 21:41 Review of Systems Review of Systems: A 10 system review of systems was completed on the patient and is negative except for what is stated in the HPI. Nursing and ancillary documentation was reviewed. [facility] Past Medical History Medical History Brain aneurysm Hypertension Seizure disorder Surgical History Surgical History Surgical history unknown Social History Social History Smoking packs per day: 1 Smoking cigarettes per day: 20.0 Years smoked: 30 Smoking pack-years: 30.00 Smoking status: Former smoker Tobacco type: cigarettes Second hand tobacco smoke exposure: No Smoking end date: 09/01/19 Alcohol intake: former Substance use: former Gender identity (if verbalized by the patient): Female Spiritual care concerns: No Exam Narrative: GENERAL: Well-appearing, well-nourished, and in no acute distress. HEAD: Normocephalic, atraumatic. EYES: PERRLA and EOMI. ENT: Nares clear, no rhinorrhea or epistaxis. Mucous membranes moist. NECK: Supple. CHEST: Clear to auscultation. No respiratory distress. HEART: Regular rate and rhythm. No murmur heard. Normal peripheral pulses. ABDOMEN: Soft, nontender, nondistended, normal active bowel sounds. EXTREMITIES: Normal range of motion. No edema. SKIN: Warm, dry, no rash. NEURO: No focal deficits. Alert and oriented x2 able to answer some basic questions. PSYCH: Normal mood and affect. Course Vital Signs Vital signs: Vital Signs Temperature 36.4 C L 04/16/22 21:52 Pulse Rate 129 H 04/16/22 21:52 Respiratory Rate 20 04/16/22 21:52 Blood Pressure 142/84 H 04/16/22 21:52 Pulse Oximetry 92 04/16/22 21:52 Oxygen Delivery Room Air 04/16/22 21:52 Temperature 36.4 C L 04/16/22 21:52 Pulse Rate 88 04/17/22 00:42 Respiratory Rate 18 04/17/22 00:42 Blood Pressure 159/83 H 04/17/22 00:42 Pulse Oximetry 99 04/17/22 00:42 Oxygen Delivery Room Air 04/16/22 22:31 Medical Decision Making Vital Signs Vital Signs: Vital Signs Temperature 36.4 C L 04/16/22 21:52 Pulse Rate 129 H 04/16/22 21:52 Respiratory Rate 20 04/16/22 21:52 Blood Pressure 142/84 H 04/16/22 21:52 Pulse Oximetry 92 04/16/22 21:52 Oxygen Delivery Room Air 04/16/22 21:52 Temperature 36.4 C L 04/16/22 21:52 Pulse Rate 88 04/17/22 00:42 Respiratory Rate 18 04/17/22 00:42 Blood Pressure 159/83 H 04/17/22 00:42 Pulse Oximetry 99 04/17/22 00:42 Oxygen Delivery Room Air 04/16/22 22:31 Lab Data Result diagrams: 04/16/22 22:52 04/16/22 22:52 Labs: Lab Results 04/16/22 04/16/22 04/16/22 Range/Units 22:52 22:52 23:36 WBC 8.2 (4.5-10.0) K/mm3 RBC 4.45 (4.2-5.4) M/mm3 Hgb 12.7 (12.0-15.0) g/dL Hct 39.3 (37.0-47.0) % MCV 88.3 (80-100) fl MCH 28.
[2022-04-17 00:42] VITALS: BP 159/83; PULSE 88; RESP 18; O2SAT 99
[2022-04-17] MEDS: CEPHALEXIN 500 MG CAPSULE PO (01:53)
== END 2022-04-17 02:04 | disposition home or self-care (01) ==
PROVIDERS: Emergency Provider Emergency Medicine; PCP Internal Medicine
DX: G40.909 Epilepsy, unspecified, not intractable, without status epilepticus (principal); N39.0 Urinary tract infection, site not specified; I10 Essential (primary) hypertension; Z87.891 Personal history of nicotine dependence
CPT/HCPCS: 36415; 80053; 81001; 85025; 87086; 87088; 96365; 99284; A9270; J1953; J7030

== ENCOUNTER 2023-07-20 21:16 | Emergency (ER) | payer OTHER, SELFPAY ==
[2023-07-20] VITALS (17 sets, daily range): BP systolic 158–166; BP diastolic 84–99; PULSE 82–109; RESP 17–29; TEMP 36.6; O2SAT 96–100
--- NOTE | ~2023-07-20 | CT_ITS ---
Non-contrast Head CT History: Seizure COMPARISON: 07/16/2021 Technique: Axial non-contrast imaging of the brain was performed. Dose reduction technique was used on this scan by utilizing automated exposure control and iterative reconstruction technique. The dose -length product (DLP) was 681.00 mGy-cm. Findings: There is no evidence of intracranial hemorrhage, mass lesion, or acute infarct. There is c hronic encephalomalacia with aneurysm clip in the right frontal lobe with overlying right frontal tower crane operator niotomy.. The ventricles and subarachnoid spaces are normal in size. The visualized paranasal sin uses and mastoid air cells are clear. Impression: No acute abnormality seen. Chronic encephalomalacia with aneurysm clip in the right frontal lobe, with overlying right frontal c raniotomy. Reviewed, dictated and finalized at [facility]. GROWER Impression: No acute abnormality seen. Chronic encephalomalacia with aneurysm clip in the right frontal lobe, with ove rlying right frontal craniotomy.
--- NOTE | 2023-07-20 21:23 | ECG_ITS ---
Measurements Intervals [place] Rate: 87 P: 79 ID: [id number] QRS: 26 QRSD: 96 T: 71 QT: 375 QTc: 451 Interpretive Statements SINUS RHYTHM WITH OCCASIONAL SUPRAVENTRICULAR PREMATURE COMPLEXES BASELINE ARTIFACT POSSIBLE LEFT ATRIAL ENLARGEMENT [-0.1mV P WAVE IN V1/V2] ST ABNORMALITY CONSIDER ISCHEMIA LATERAL LEADS COMPARED TO ECG 07/16/2021 17:26:12 SINUS RHYTHM NOW PRESENT T-WAVE ABNORMALITY NOW PRESENT Electronically Signed On 07-21-2023 18:20:42 DOGMAN/WOMAN by Sandip Rider M.D.
--- NOTE | 2023-07-20 21:41 | ED.GENADULT ---
HPI - General Adult General Chief complaint: Seizure Stated complaint: seizure Time Seen by Provider: 07/20/23 21:20 History of Present Illness HPI narrative: 62-year-old female with history epilepsy presenting to the ED after having a suspected seizure. Family heard the patient having a seizure in the bathroom. Upon arrival to the emergency department patient denies having a seizure denies any fall or injury. Patient does not appear to be significantly postictal. Patient states that she is on Vimpat, phenobarbital and Keppra, patient states she has not been taking her Keppra. Related Data Home Medications Medication Instructions Recorded Confirmed duloxetine 60 mg capsule,delayed mg PO 07/16/21 release furosemide 40 mg tablet 07/16/21 levetiracetam 750 mg tablet PO 07/16/21 melatonin 5 mg capsule mg 07/16/21 Allergies Allergy/AdvReac Type Severity Reaction Status Date / Time No Known Allergies Allergy Verified 07/20/23 21:28 Review of Systems Review of Systems: All systems reviewed & are unremarkable except as noted in HPI and below PMFSH Past Medical History Medical History Brain aneurysm Hypertension Seizure disorder Surgical History Surgical History Surgical history unknown Social History Social History Smoking packs per day: 1 Smoking cigarettes per day: 20.0 Years smoked: 30 Smoking pack-years: 30.00 Smoking status: Former smoker Tobacco type: cigarettes Second hand tobacco smoke exposure: No Smoking end date: 09/01/19 Alcohol intake: former Substance use: former Gender identity (if verbalized by the patient): Female Spiritual care concerns: No Exam Narrative: APPEARANCE: Well appearing, no pain, no distress, well-nourished. HEAD: normocephalic, atraumatic. EYES: PERRLA/EOMI, conjunctivae clear. NOSE: Normal no drainage EARS:TMS clear with good light reflex. THROAT: Pharynx clear, no exudate. NECK: Supple. No adenopathy, no masses. RESPIRATORY: Airway patent, respirations nonlabored. Clear to auscultation bilaterally, no rales, rhonchi, wheezing. CARDIOVASCULAR: Regular rate and rhythm without murmurs rubs or gallops. ABDOMINAL: Soft, nontender, nondistended, normal bowel sounds MUSCULOSKELETAL: Moves all extremities. Strength/ROM intact, No edema, No calf tenderness. NEURO: Alert. Cranial nerves II through XII intact. Good gait. Good coordination SKIN: Warm, dry. Normal Color Course Course Emergency Course: 62-year-old female presenting ED by EMS for evaluation of possible seizure. Patient states she did not have a seizure and patient is currently alert and appropriate. Patient denies any pain or injury. Family states the patient has not been taking Keppra. Patient was treated with Keppra in the emergency department. Patient had no further seizure-like activity. Patient is afebrile with no leukocytosis and hemoglobin of 10.8 patient did have some hypokalemia but no other acute changes to the CMP UA did show evidence of urinary tract infection. Urine culture was ordered and patient was started on antibiotics. At re-evaluation patient states he does feel improved denies any pain or complaints and patient was obtained the results of her workup. Family states the patient does not currently take Keppra so her Keppra prescription was not refilled. Patient does take Vimpat and phenobarbital. Vital Signs Vital signs: Vital Signs Temperature 97.8 F 07/20/23 21:15 Pulse Rate 88 07/20/23 21:15 Respiratory Rate 20 07/20/23 21:15 Blood Pressure 165/98 H 07/20/23 21:15 Pulse Oximetry 100 07/20/23 21:15 Oxygen Delivery Room Air 07/20/23 21:15 Temperature 97.8 F 07/20/23 21:15 Pulse Rate 107 H 07/21/23 00:30 Respiratory Rate 23 H 07/21/23 00:30
--- NOTE | 2023-07-20 22:10 | PC.NURSE ---
2205 This RN called patients daughter, Latoya and spoke to her about patient. Latoya states that the patient is on vimpat and phenobarbitol for her seizures and has not had her keppra filled in a while . She states patient has been compliant with the other seizure meds though. Patients daughter states that patient did not hit her head when she had her sz. ERP notified.
[2023-07-20] MEDS: levETIRAcetam 1000MG/NACL100ML 1,000 MG/100 ML BAG 400 MG IVPB (22:17)
[2023-07-20 22:45] LABS: Appearance Urine Clear (Clear); Bacteria Urine 3+ /hpf; Bilirubin Urine Negative (Negative); Blood Urine Negative (Negative); Color Urine Yellow (Yellow); Glucose Urine UA Negative (Negative); Ketones Urine Negative (Negative); Leukocyte Esterase Ur 2+ LEU/UL (Negative); Nitrate Urine Negative (Negative); Non Pathogenic Casts 0-2; Protein Urine Negative (Negative); RBC Urine 0-2 /hpf (0-2); Specific Grav Ur 1.006 (1.001-1.035); Squamous Epithelial Cell Urine Occasional /hpf (Few); Urobilinogen Urine 0.2 mg/dL (<2.0); pH Urine 6.5 (5.0-9.0)
[2023-07-20 22:55] LABS: Basophils Percent Auto 0.4 % (0.2-1.2); Eosinophils Absolute Auto 0.1 K/mm3 (0-0.3); Eosinophils Percent Auto 2.1 % (0-4.4); Hematocrit 33.9 % (37.0-47.0); Hemoglobin 10.8 g/dL (12.0-15.0); Immature Granulocyte Absolute 0.01 K/mm3 (0.00-0.031); Immature Granulocyte Percent A 0.2 % (0-0.5); Lymphocytes Absolute Auto 2.07 K/mm3 (0.9-3.2); Lymphocytes Percent Auto 43.4 % (18.3-44.2); Mean Corpuscular HGB Conc 31.9 g/dl (32-36); Mean Corpuscular Hemoglobin 27.8 pg (26-34); Mean Corpuscular Volume 87.1 fl (80-100); Mean Platelet Volume 9.8 fl (7.4-10.4); Monocytes Absolute Auto 0.4 K/mm3 (0.1-0.6); Monocytes Percent Auto 8.2 % (2.6-8.5); Neutrophils Absolute Auto 2.2 K/mm3 (1.3-6.7); Neutrophils Percent Auto 45.7 % (45.5-73.1); Platelet Count Result 232 k/mm3 (150-375); Red Blood Count 3.89 M/mm3 (4.2-5.4); Red Cell Distribution Width 14.3 % (11.5-14.5); White Blood Count 4.8 K/mm3 (4.5-10.0)
[2023-07-20 23:08] LABS: Alanine Aminotransferase 30 U/L (6-35); Albumin Level 3.8 g/dL (3.5-5.1); Alkaline Phosphatase 94 U/L (38-126); Anion Gap 4 mmol/L (8-16); Aspartate Amino Transferase 39 U/L (14-36); Bilirubin,Total 0.3 mg/dL (0.2-1.3); Blood Urea Nitrogen 11 mg/dL (7-17); Calcium 8.9 mg/dL (8.4-10.2); Carbon Dioxide 28 mmol/L (22-30); Chloride 105 mmol/L (98-107); Estimated CRCL calculation 74 ml/min; Estimated Glomerular Filt Rate > 60; Glucose 108 mg/dL (65-110); Potassium 3.1 mmol/L (3.4-5.0); Sodium 137 mmol/L (137-145)
[2023-07-20 23:08] LABS: Add Urine Microscopic? YES
[2023-07-20 23:37] LABS: Influenza A QL RT-PCR Negative (Negative); Influenza B QL RT-PCR Negative (Negative); RSV RNA, RT-PCR Negative (Negative); SARS-CoV-2 RNA PCR Negative (Negative)
[2023-07-20] MEDS: POTASSIUM CHLORIDE 20 MEQ PACKET (FOR LIQUID) 40 MEQ PO (23:47)
[2023-07-21] VITALS: PULSE 88; RESP 18
--- NOTE | 2023-07-21 00:06 | PC.NURSE ---
0005 Called patients daughter Latoya to inform her of plan of care and patient is up for discharge. This RN informed her that the patient did receive a dose of IV abx UTI and a dose of keppra and that the patient is to follow up with her PCP and neurologist. Latoya stated she is able to come pick patient up.
[2023-07-21 00:15] VITALS: PULSE 102; RESP 23
[2023-07-21 00:30] VITALS: PULSE 107; RESP 23
== END 2023-07-21 01:00 | disposition home or self-care (01) ==
PROVIDERS: Emergency Provider Emergency Medicine; PCP Internal Medicine
DX: G40.909 Epilepsy, unspecified, not intractable, without status epilepticus (principal); N39.0 Urinary tract infection, site not specified; T42.6X6A Underdosing of other antiepileptic and sedative-hypnotic drugs, initial encounter; Z91.128 Patient's intentional underdosing of medication regimen for other reason; I10 Essential (primary) hypertension; Z87.891 Personal history of nicotine dependence; I49.1 Atrial premature depolarization; R94.31 Abnormal electrocardiogram [ECG] [EKG]; Z20.822 Contact with and (suspected) exposure to COVID-19
CPT/HCPCS: 36415; 70450; 80053; 81001; 85025; 87086; 87637; 93005; 96365; 96367; 99284; A9270; J0696; J1953

== ENCOUNTER 2023-08-30 20:50 | Observation (INO) | payer OTHER, SELFPAY ==
[2023-08-30] VITALS (7 sets, daily range): BP systolic 129–149; BP diastolic 62–104; PULSE 71–89; RESP 18; TEMP 36.4; O2SAT 96–99
--- NOTE | ~2023-08-30 | XR_ITS ---
XR chest 1V DATE: 08/30/2023 22:30 INDICATION: Shortness of breath. Seizures. TECHNIQUE: AP chest on 08/30/2023 at 2228 hours COMPARISON: 06/27/2021 PA and lateral chest FINDINGS: Cardiomegaly. Aortic calcification and mild unfolding. No hilar or mediastinal enlargement is evident. There is a small right pleural effusion. Is mild prominence of the minor fissure. Reyes B-lines are suggested. Mild congestive heart failure is suspected. There is mild infiltrate or atelectasis at the lung bases, primarily on the right. This may be due to atelectasis, aspiration pneumonitis considering the history of seizure or mild pneumonia. Diffuse osteopenia. IMPRESSION: Cardiomegaly, mild congestive heart failure Mild basilar infiltrates or atelectasis, right greater than left; differential diagnosis given above Reviewed, dictated and finalized at location A.
--- NOTE | ~2023-08-30 | CT_ITS ---
EXAMINATION: CT brain wo con DATE: 08/30/2023 22:28 INDICATION: Seizures TECHNIQUE: Computed tomographic angiography (CTA) of the head was performed without and with 100 mL O mnipaque-350 intravenous contrast. Exam dose: 756.67 mGy-cm total exam DLP. Volume-rendered and ma ximum intensity projection 3D reconstructions of the intracranial arteries were created by the stephanieo addison on a separate workstation. COMPARISON: July 20, 2023 CT brain FINDINGS: Status post right craniotomy with aneurysm clip in region of right middle cerebral artery. There is chronic encephalomalacia of the right frontal, temporal and parietal areas from prior infarc t. Bilateral vertebral artery, basilar artery and carotid siphon internal carotid artery calcifications. There is nonspecific diminished attenuation cerebral white matter, likely due to chronic small vesse l ischemic changes. No intracranial mass lesion or hemorrhage, midline shift or mass effect effect is noted. Bilateral ba alesia ganglia calcifications. No subdural or epidural hematoma is detected. The frontal sinuses are undeveloped. The paranasal sinuses are otherwise unremarkable. The mastoid ai r cells are well aerated. No fracture or bone destruction of the cranial vault is detected. 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 Reviewed, dictated and finalized at location A. IMPRESSION: Chronic right frontal, parietal and temporal encephalomalacia cons istent with old infarct Status post right middle cerebral artery aneurysm clipping No acute intracranial finding Cerebral atherosclerosis and chronic small vessel ischemic changes of the cereb ral white matter
--- NOTE | 2023-08-30 20:59 | ED.SEIZURE ---
HPI - Seizure General Chief Complaint: Seizure Stated Complaint: seizure Time Seen by Provider: 08/30/23 20:52 Source: patient and EMS Mode of arrival: EMS Limitations: no limitations History of Present Illness HPI Narrative: Patient presents after having report of seizures. EMS was called for patient who had a reported 45 second seizure without postictal period. EMS reported her to have a 45 second seizure as well with right gaze deviation and convulsions but aborting on its own and no significant postictal period. States she sees a neurologist (Dr Fan?) for her seizures who prescribes her medications. She does not know if she is on more than one antiseizure medication though knows she is on Keppra (dose unknown) and states has been taking her meds. Denies any alcohol, drugss, or changes in sleep. No changes in medications. Denies fever. Has had a cough and is newly on oxygen after a recent diagnosis of pneumonia but had not been previously. No diarrhea. Not on anticoagulation. History of intracranial process; patient denies CVA but can not tell me otherwise. Seizure History: Yes Related Data Home Medications Medication Instructions Recorded Confirmed duloxetine 60 mg capsule,delayed 60 mg PO DAILY 07/16/21 08/31/23 release furosemide 40 mg tablet 40 mg PO DAILY 07/16/21 08/31/23 levetiracetam 750 mg tablet 750 mg PO DAILY 07/16/21 08/31/23 aspirin 81 mg tablet,delayed 81 mg PO DAILY 08/31/23 08/31/23 release carvedilol 25 mg tablet 25 mg PO DAILY 08/31/23 08/31/23 lacosamide 200 mg tablet 200 mg PO BID 08/31/23 08/31/23 phenobarbital 97.2 mg tablet 97.2 mg PO DAILY 08/31/23 08/31/23 Allergies Allergy/AdvReac Type Severity Reaction Status Date / Time No Known Allergies Allergy Verified 07/20/23 21:28 [facility] Past Medical History Medical History Brain aneurysm Hypertension Seizure disorder Surgical History Surgical History Surgical history unknown Social History Social History Smoking packs per day: 1 Smoking cigarettes per day: 20.0 Years smoked: 30 Smoking pack-years: 30.00 Smoking status: Former smoker Tobacco type: cigarettes Second hand tobacco smoke exposure: No Smoking end date: 09/01/19 Alcohol intake: never Substance use: never Do You Feel Safe in your Home?: Yes Lack of Transportation: No Lack of Food: Sometimes True Current Housing: I Have Housing Concerned About Future Housing: No Difficulty Paying Gas/Electric Bills: No Difficulty Paying for Meds: No Currently Unemployed: No Education: High School Diploma/GED Difficulty w/ Childcare or Family Care: No Gender identity (if verbalized by the patient): Female Spiritual care concerns: No Exam Narrative: GENERAL: well-nourished, and in no acute distress. HEAD: Normocephalic, atraumatic. EYES: Non injected, non icteric. EOMI. ENT: Nares clear, no rhinorrhea or epistaxis. NECK: Supple. CHEST: Clear to auscultation. No respiratory distress. Nasal cannula in place HEART: Regular rate and rhythm. . ABDOMEN: Soft, nondistended. EXTREMITIES: Normal range of motion. No edema. SKIN: Warm, dry, no rash. NEURO: No focal deficits. Alert and oriented x3. Moving all extremities. Speech normal though appears tired. No aphasia . PSYCH: Normal mood and affect. Course Vital Signs Vital signs: Vital Signs Temperature 97.5 F L 08/30/23 21:00 Pulse Rate 89 08/30/23 21:00 Respiratory Rate 18 08/30/23 21:00 Blood Pressure 146/80 H 08/30/23 21:00 Pulse Oximetry 99 08/30/23 21:00 Oxygen Delivery Room Air 08/30/23 21:00 Temperature 98.0 F 09/01/23 05:04 Pulse Rate 107 H 09/01/23 05:04 Respiratory Rate 17 09/01/23 05:04 Blood Pressure 126/86 09/01/23 05:04 Pulse Oximetry 94 09/01/23 05:04 Oxyge
--- NOTE | 2023-08-30 21:13 | ECG_ITS ---
Measurements Intervals [place] Rate: 94 P: 67 CA: 160 QRS: -11 QRSD: 84 T: 42 QT: 363 QTc: 455 Interpretive Statements SINUS RHYTHM NONSPECIFIC T-WAVE ABNORMALITY- ANTEROLATERAL LEADS BASELINE ARTIFACT- I, III, AVL, V4-V5 BORDERLINE ECG COMPARED TO ECG 07/20/2023 21:28:43 NO SIGNIFICANT CHANGES Electronically Signed On 08-31-2023 8:04:36 CDT by Shaun Greene D.O.
--- NOTE | 2023-08-30 21:15 | PC.NURSE ---
Pt having seizure. MD at bedside and gives VORB for 5mg versed IM. Given at 2115.
[2023-08-30 21:44] LABS: Basophils Percent Auto 0.5 % (0.2-1.2); Eosinophils Percent Auto 0.6 % (0-4.4); Hematocrit 35.6 % (37.0-47.0); Immature Granulocyte Absolute 0.01 K/mm3 (0.00-0.031); Immature Granulocyte Percent A 0.2 % (0-0.5); Lymphocytes Absolute Auto 2.04 K/mm3 (0.9-3.2); Lymphocytes Percent Auto 32.5 % (18.3-44.2); Mean Corpuscular HGB Conc 30.9 g/dl (32-36); Mean Corpuscular Hemoglobin 27.8 pg (26-34); Mean Corpuscular Volume 90.1 fl (80-100); Mean Platelet Volume 9.1 fl (7.4-10.4); Monocytes Absolute Auto 0.7 K/mm3 (0.1-0.6); Monocytes Percent Auto 10.5 % (2.6-8.5); Neutrophils Absolute Auto 3.5 K/mm3 (1.3-6.7); Neutrophils Percent Auto 55.7 % (45.5-73.1); Platelet Count Result 352 k/mm3 (150-375); Red Blood Count 3.95 M/mm3 (4.2-5.4); Red Cell Distribution Width 16.1 % (11.5-14.5); White Blood Count 6.3 K/mm3 (4.5-10.0)
[2023-08-30] MEDS: MIDAZOLAM HCL (*CRX) 2 MG/2 ML VIAL 5 MG IM (21:45)
[2023-08-30 21:56] LABS: Alanine Aminotransferase 20 U/L (6-35); Albumin Level 3.7 g/dL (3.5-5.1); Alkaline Phosphatase 80 U/L (38-126); Anion Gap 7 mmol/L (4-12); Aspartate Amino Transferase 26 U/L (14-36); Bilirubin,Total 0.3 mg/dL (0.2-1.3); Blood Urea Nitrogen 14 mg/dL (7-17); Calcium 8.6 mg/dL (8.4-10.2); Carbon Dioxide 27 mmol/L (22-30); Chloride 109 mmol/L (98-107); Estimated CRCL calculation 74 ml/min; Estimated Glomerular Filt Rate > 60; Glucose 106 mg/dL (65-110); Magnesium 1.8 mg/dL (1.6-2.3); Potassium 3.1 mmol/L (3.4-5.0); Sodium 143 mmol/L (137-145)
[2023-08-30 21:59] LABS: Influenza A QL RT-PCR Negative (Negative); Influenza B QL RT-PCR Negative (Negative); RSV RNA, RT-PCR Negative (Negative); SARS-CoV-2 RNA PCR Negative (Negative)
[2023-08-30] MEDS: POTASSIUM CHLORIDE 20 MEQ PACKET (FOR LIQUID) 40 MEQ PO (23:35)
[2023-08-30] MEDS: levETIRAcetam Tablet 250 MG, levETIRAcetam Tablet 500 MG 750 MG PO (23:35)
--- NOTE | 2023-08-30 23:44 | PC.NURSE ---
pt had witnessed approximate 30-45 second seizure
[2023-08-30] MEDS: levETIRAcetam 1000MG/NACL100ML 1,000 MG/100 ML BAG 400 MG IVPB (23:57)
[2023-08-31] VITALS (27 sets, daily range): BP systolic 112–157; BP diastolic 66–117; PULSE 60–105; RESP 16–28; TEMP 36.3–36.7; O2SAT 90–100; BMI 26.6
[2023-08-31 00:09] LABS: Alveolar/Arterial O2 Gradient 44.7 mmHg; Base Excess ABG -1.7 mEq/l (+/-2.0); Fractional Inspired Oxygen 28 %; HCO3 ABG 24.3 mEq/l (22.0-26.0); Oxygen Content ABG 15.8 %vol (16.0-22.0); Oxygen Saturation ABG 97.2 % (95.0-100.0); Oxyhemoglobin 95.8 % THb (90.0-100.0); PCO2 ABG 46.4 mmHg (35.0-45.0); PO2 ABG 100.2 mmHg (80.0-100.0); PO2 FiO2 Ratio Arterial Blood 3.58 %; Total Hemoglobin 11.6 g/dL (12.0-18.0); pH ABG 7.337 (7.350-7.450)
[2023-08-31 00:11] LABS: Device NASAL CANNULA; Modified Allen's Test Pass; Site Drawn LEFT RADIAL
--- NOTE | 2023-08-31 00:11 | PC.NURSE ---
vrbo 2mg ativan iv or 5mg im versed erp dr hernandez
[2023-08-31] MEDS: LORazepam INJ (*CRX) 2 MG/ML VIAL IV PUSH (00:19)
--- NOTE | 2023-08-31 00:35 | PC.NURSE ---
Pt having liquid bm at this time. Cleaned up x 2.
--- NOTE | 2023-08-31 03:29 | ADMGEN ---
This patient, Rosalba Workman, was admitted to 2 Medical Room 240-. Patient/family oriented to hospital policies and general routines including ID bracelet, bed and alarms, visiting hours, pain management, procedures, bathroom and other care routines, personal items, smoking policy, room service/diet, and visiting hours. Information on how to activate the Rapid Response Team has been discussed. Patient/Family are encouraged to report perceived risks to care and to ask questions if they do not understand what they are told or what they should do.
[2023-08-31] MEDS: ASPIRIN 81 MG ENTERIC TABLET PO (09:06)
[2023-08-31] MEDS: DULoxetine HCL 60 MG CAPSULE.DR PO (09:06)
[2023-08-31] MEDS: carvediloL 12.5 MG TABLET PO ×2 (09:06→20:04)
[2023-08-31] MEDS: levETIRAcetam 250 MG TABLET 750 MG PO ×2 (09:07→20:04)
[2023-08-31] MEDS: LACOSAMIDE (*CRX) 200 MG TABLET PO ×2 (09:07→17:21)
[2023-08-31] MEDS: FUROSEMIDE 40 MG TABLET PO (09:14)
[2023-08-31] MEDS: PHENobarbital (*CRX) 100 MG TABLET PO (09:45)
--- NOTE | 2023-08-31 10:18 | WPDNEURCNPN ---
Assessment and Plan Assessment and plan (1) Encephalomalacia on imaging study: Code(s): G93.89 - Other specified disorders of brain Status: Acute (2) Breakthrough seizure: Code(s): G40.919 - Epilepsy, unspecified, intractable, without status epilepticus Status: Acute Plan Ms. Workman is a 62 year old female with a history of L frontal encephalomalacia with epilepsy presenting due to increase in seizure frequency. In the past there have been concerns for medication noncompliance. Patient is not able to provide much information about her seizure history or her anti-seizure medications. Her medication list includes Keppra, Lacosamide, and Phenobarbital. Oddly, the Keppra dose is listed at 750mg daily, which is not a typical dose. I am wondering if it is meant to be q12 hrs and she has been only getting it once a day. There were reports that patient does have an established neurologist, but again patient not able to confirm this. Will need to get collateral information from patient's family and adjust anti-seizure medications accordingly if needed. Consult date: 08/31/23 Reason for consult: Increase in seizures HPI: Rosalba Workman is a 62 year old female with a history of R fontal lobe encephalomalacia, with R MCA aneurysm with clip, and epilepsy presenting due to increase in seizure frequency. Patient was brought in by family for episodes concerning for seizure. Apparently the episodes she was having yesterday are different that her typical seizure semiology. Per the ED doctor, patient would stare off for about a minute at a time, and then come back to her baseline. Patient is on several anti-seizure medications including Keppra, Lacosamide, and Phenobarbital. Patient had an admission at [place] in 2019 for seizures and that time her Keppra was increased to 2000mg BID. However, her current medication list states Keppra dose as 750mg daily. She is also taking lacosamide 200mg BID and phenobarbital 97.2mg daily now.She had an ER visit in July 2023 for breakthrough seizure. At that time she reported that she was not taking her Keppra. Last Keppra level in the chart is from July 2021 which was <1. Patient is not able to provide much information about her history. She is not sure what medications she is taking. No family at bedside at the time of my evaluation. Review of Systems Review of Systems: All systems reviewed & are unremarkable except as noted in HPI and below PMFSH Past Medical History Medical History Brain aneurysm Hypertension Seizure disorder Surgical History Surgical History Surgical history unknown Social History Social History Smoking packs per day: 1 Smoking cigarettes per day: 20.0 Years smoked: 30 Smoking pack-years: 30.00 Smoking status: Former smoker Tobacco type: cigarettes Second hand tobacco smoke exposure: No Smoking end date: 09/01/19 Alcohol intake: never Substance use: never Do You Feel Safe in your Home?: Yes Lack of Transportation: No Lack of Food: Sometimes True Current Housing: I Have Housing Concerned About Future Housing: No Difficulty Paying Gas/Electric Bills: No Difficulty Paying for Meds: No Currently Unemployed: No Education: High School Diploma/GED Difficulty w/ Childcare or Family Care: No Gender identity (if verbalized by the patient): Female Spiritual care concerns: No Meds Home Medications and Allergies Home Medications Medication Instructions Recorded Confirmed Type duloxetine 60 mg capsule,delayed 60 mg PO DAILY 07/16/21 08/31/23 History release furosemide 40 mg tablet 40 mg PO DAILY 07/16/21 08/31/23 History levetiracetam 750 mg tablet 750 mg PO DAILY 07/16/21 08/31/23 History aspirin 81 mg tablet,delayed 81 mg PO DAILY 08/31/23 08/31/23 Histo
--- NOTE | 2023-08-31 11:53 | PM.IMHP ---
H&P: HPI History of Present Illness Date/Time: 08/31/23 11:53 Chief Complaint: Seizures Narrative: This is a 62-year-old female patient who was admitted to the hospital after having several seizures prior to presentation as well as witnessed absence like seizure activity. Previously patient was on high-dose Keppra 1000 mg twice a day but now her home medication rec says 750 mg once daily. Patient states that her daughter gives her her medicine however when nursing staff spoke to the daughter the daughter did not know what medicine the patient was taking. It is possible she may or may not have received any of her anti epileptics for a while. Patient is currently awake talking possibly mildly confused though she does have a large area of chronic encephalomalacia on imaging and this may be her baseline mental status. Family is not present. Patient states that she is pretty healthy other than seizures but a review of medical history shows hypertension and imaging was concerned for possible pulmonary edema and cardiomegaly. Echocardiogram is ordered. Medication list includes aspirin carvedilol duloxetine furosemide lacosamide Keppra and phenobarbital. Review of Systems Review of Systems: ROS unobtainable: Yes unobtainable due to mental status and other (No family present) [facility] Past Medical History Medical History Brain aneurysm Hypertension Seizure disorder Surgical History Surgical History Surgical history unknown Social History Social History Smoking packs per day: 1 Smoking cigarettes per day: 20.0 Years smoked: 30 Smoking pack-years: 30.00 Smoking status: Former smoker Tobacco type: cigarettes Second hand tobacco smoke exposure: No Smoking end date: 09/01/19 Alcohol intake: never Substance use: never Do You Feel Safe in your Home?: Yes Lack of Transportation: No Lack of Food: Sometimes True Current Housing: I Have Housing Concerned About Future Housing: No Difficulty Paying Gas/Electric Bills: No Difficulty Paying for Meds: No Currently Unemployed: No Education: High School Diploma/GED Difficulty w/ Childcare or Family Care: No Gender identity (if verbalized by the patient): Female Spiritual care concerns: No Meds Home Medications and Allergies Home Medications Medication Instructions Recorded Confirmed Type duloxetine 60 mg capsule,delayed 60 mg PO DAILY 07/16/21 08/31/23 History release furosemide 40 mg tablet 40 mg PO DAILY 07/16/21 08/31/23 History levetiracetam 750 mg tablet 750 mg PO DAILY 07/16/21 08/31/23 History aspirin 81 mg tablet,delayed 81 mg PO DAILY 08/31/23 08/31/23 History release carvedilol 25 mg tablet 25 mg PO DAILY 08/31/23 08/31/23 History lacosamide 200 mg tablet 200 mg PO BID 08/31/23 08/31/23 History phenobarbital 97.2 mg tablet 97.2 mg PO DAILY 08/31/23 08/31/23 History Allergies Allergy/AdvReac Type Severity Reaction Status Date / Time No Known Allergies Allergy Verified 07/20/23 21:28 Vital Signs Vital Signs - 24 hr 08/30/23 21:00 08/30/23 21:42 08/30/23 23:44 Temperature 36.4 C L Pulse Rate 89 80 Respiratory Rate 18 Blood Pressure 146/80 H Pulse Oximetry 99 Oxygen Delivery Room Air Nasal Cannula Oxygen Flow Rate 3 08/30/23 23:45 08/30/23 21:00 08/31/23 01:04 Temperature Pulse Rate 84 85 Respiratory Rate 21 H Blood Pressure 146/80 H Pulse Oximetry 96 100 Oxygen Delivery Nasal Cannula Oxygen Flow Rate 2 08/31/23 01:15 08/31/23 01:16 08/30/23 21:15 Temperature Pulse Rate 84 78 89 Respiratory Rate 28 H 26 H Blood Pressure 121/72 149/104 H Pulse Oximetry 100 99 Oxygen Delivery Oxygen Flow Rate 08/30/23 23:00 08/30/23 23:15 08/30/23 23:30 Temperature Pulse Rate 78 71 83 Respira
[2023-09-01] VITALS (12 sets, daily range): BP systolic 105–130; BP diastolic 65–86; PULSE 64–107; RESP 17–18; TEMP 36.6–36.8; O2SAT 94–100
--- NOTE | 2023-09-01 | ECHO_ITS ---
Patient Info Name: Rosalba Workman Age: 62 years : 1960 Gender: Female Ht: 68 in Wt: 175 lbs BSA: 1.97 m2 HR: 75 bpm BP: 126 / 86 mmHg Heart Rhythm: Sinus Rhythm Technical Quality: Fair Exam Date: 09/01/2023 11:10 AM Exam Location: Echo Lab Patient Status: Outpatient Admit Date: 08/31/2023 Staff Ordering Physician: Shaw Ash APRN Lead Neurodiagnostic Technologist: Christian Blank RDCS Attending Provider: Sharon Urbina DO Referring Physician: Mihir ELIZABETH; Exam Type: CA echo doppler color flow Study Info Indications J81.0 - Acute pulmonary edema I51.7 - Cardiomegaly Complete two-dimensional, color flow and Doppler transthoracic echocardiogram is performed. Summary 1. Complete two-dimensional, color flow and Doppler transthoracic echocardiogram is performed. 2. Mild left ventricular enlargement with reduced systolic function ejection fraction visually estimated at 35%. 3. Grade 1 diastolic noncompliance. 4. Mild biatrial dilation. 5. Mild aortic regurgitation. Left Ventricle Left ventricular chamber dimension is mildly enlarged. Left ventricular systolic function is moderately reduced, estimated at 30-35%. The left ventricular diastolic function is grade I diastolic dysfunction. Right Ventricle Right ventricular chamber dimension is normal. Left Atria Left atrial chamber dimension is moderately enlarged. Right Atria Right atrial chamber dimension is mildly enlarged. Aortic Valve The aortic valve is trileaflet. There is mild aortic valve sclerosis. There is mild aortic valve regurgitation. Pulmonic Valve The pulmonic valve is not well visualized. Mitral Valve The mitral valve has normal leaflets. There is trace mitral valve regurgitation. Tricuspid Valve The tricuspid valve leaflets are normal. Pericardium/Pleural The pericardium appears normal. Aorta The aortic root size at the sinus of Valsalva is normal. Left Ventricular Outflow Tract Name Value Normal LVOT 2D LVOT Diameter 2.2 cm LVOT Doppler LVOT Peak Gradient 4 mmHg LVOT Mean Gradient 1 mmHg LVOT VTI 15 cm LVOT VTI/AV VTI Ratio 0.7 LVOT Stroke Volume 57 ml LVOT CO 4.1 l/min LVOT CI 2.1 l/min/m2 Pulmonic Valve Name Value Normal RVOT Doppler RVOT Peak Gradient 2 mmHg PV Doppler PV Peak Gradient 2 mmHg Mitral Valve Name Value Normal MV Doppler MV [place] 423 cm/s2
[2023-09-01 05:33] LABS: Basophils Percent Auto 0.6 % (0.2-1.2); Eosinophils Absolute Auto 0.1 K/mm3 (0-0.3); Eosinophils Percent Auto 1.3 % (0-4.4); Hematocrit 34.6 % (37.0-47.0); Hemoglobin 10.6 g/dL (12.0-15.0); Immature Granulocyte Absolute 0.01 K/mm3 (0.00-0.031); Immature Granulocyte Percent A 0.2 % (0-0.5); Lymphocytes Absolute Auto 1.89 K/mm3 (0.9-3.2); Lymphocytes Percent Auto 35.9 % (18.3-44.2); Mean Corpuscular HGB Conc 30.6 g/dl (32-36); Mean Corpuscular Volume 91.5 fl (80-100); Mean Platelet Volume 9.9 fl (7.4-10.4); Monocytes Absolute Auto 0.5 K/mm3 (0.1-0.6); Monocytes Percent Auto 10.1 % (2.6-8.5); Neutrophils Absolute Auto 2.7 K/mm3 (1.3-6.7); Neutrophils Percent Auto 51.9 % (45.5-73.1); Platelet Count Result 327 k/mm3 (150-375); Red Blood Count 3.78 M/mm3 (4.2-5.4); Red Cell Distribution Width 16.1 % (11.5-14.5); White Blood Count 5.3 K/mm3 (4.5-10.0)
[2023-09-01 05:49] LABS: Alanine Aminotransferase 17 U/L (6-35); Albumin Level 3.6 g/dL (3.5-5.1); Alkaline Phosphatase 73 U/L (38-126); Anion Gap 4 mmol/L (4-12); Aspartate Amino Transferase 27 U/L (14-36); Bilirubin,Total 0.5 mg/dL (0.2-1.3); Blood Urea Nitrogen 8 mg/dL (7-17); Calcium 8.6 mg/dL (8.4-10.2); Carbon Dioxide 28 mmol/L (22-30); Chloride 106 mmol/L (98-107); Estimated CRCL calculation 85 ml/min; Estimated Glomerular Filt Rate > 60; Glucose 97 mg/dL (65-110); Potassium 3.6 mmol/L (3.4-5.0); Sodium 138 mmol/L (137-145)
[2023-09-01] MEDS: carvediloL 12.5 MG TABLET PO ×2 (08:55→20:37)
[2023-09-01] MEDS: DULoxetine HCL 60 MG CAPSULE.DR PO (08:55)
[2023-09-01] MEDS: ASPIRIN 81 MG ENTERIC TABLET PO (08:55)
[2023-09-01] MEDS: LACOSAMIDE (*CRX) 200 MG TABLET PO ×2 (08:56→17:12)
[2023-09-01] MEDS: FUROSEMIDE 40 MG TABLET PO (08:56)
[2023-09-01] MEDS: PHENobarbital (*CRX) 100 MG TABLET PO (08:56)
[2023-09-01] MEDS: levETIRAcetam 250 MG TABLET 750 MG PO (08:56)
--- NOTE | 2023-09-01 13:02 | PM.IMPN ---
Progress Note: A&P Assessment and Plan (1) Breakthrough seizure: Code(s): G40.919 - Epilepsy, unspecified, intractable, without status epilepticus Status: Acute Assessment and Plan: 08/31/23: Possibly medication noncompliance verses abnormal dosing of Keppra. We will dose Keppra 750 mg twice daily resume lacosamide and phenobarbital. Stat Neurology has seen patient also believes that the stated reconciliation dosing of Keppra does not make sense. Phenobarbital level is pending. 09/01/23: Phenobarbital level is pending Neuro consulted Continue phenobarbital Keppra increased to 1000 mg b.i.d. per neurology Continue lacosamide Continue seizure precautions (2) Encephalomalacia on imaging study: Code(s): G93.89 - Other specified disorders of brain Status: Acute Assessment and Plan: 08/31/23: Prior brain aneurysm knee with brain surgery with resultant seizures. Stable chronic finding on imaging large area encephalomalacia. 09/01/23: Of note, see above plan of care (3) Normocytic anemia: Code(s): D64.9 - Anemia, unspecified Status: Acute Assessment and Plan: 08/31/23: Stable slight anemia with hemoglobin 11.0 baseline is usually in the 10s-11s, no signs of bleeding or trauma. 09/01/23: Hemoglobin 10.6 No change (4) Pulmonary edema: Code(s): J81.1 - Chronic pulmonary edema Status: Acute Assessment and Plan: 08/31/23: Home medication includes furosemide and carvedilol. No prior echocardiogram on file. Ordered echocardiogram. Continue home medication as well as can be verified. 09/01/23: Continue Lasix and carvedilol Echo showing reduced systolic function with an EF estimated to be 35%, grade 1 diastolic noncompliance. Will consult Cardiology based on this finding Time Spent With Patient Time with patient: Greater than 35 minutes Subjective Date/time seen: 09/01/23 13:02 Interval history: This is a 62-year-old female who presented on 08/31/2023 for evaluation of seizures. Patient previously on high-dose Keppra 1000 mg twice daily per home med rec and says 750 mg oral daily. Patient's daughter has been the primary caregiver she is unsure of what med she takes and it is possible that she did not have any of her seizure medication in a while. Workup in the hospital includes a head CT which shows chronic right frontal, parietal, and temporal and encephalomalacia consistent with old infarct, status post right middle cerebral artery aneurysm clipping. Chest x-ray showing mild congestive heart failure, mild infiltrate. EKG shows sinus rhythm, rate of 94, QTC 455. Initial labs showing white blood cell count 6.3, hemoglobin 11.0, potassium 3.1. Respiratory panel negative for influenza a and B, RSV, COVID. On examination today patient is alert and oriented x3, lying in the bed. She denies any fever, chills, nausea, vomiting, abdominal pain, chest pain, shortness a breath. She endorses a headache, and diarrhea. Labs today reveal hemoglobin of 10.6, otherwise unremarkable. Neurology consulted and increase the dose of Keppra to 1000 mg twice a day continue with lacosamide 200 mg twice a day and phenobarbital 97.6 daily. She is suggesting follow-up in 3 months with neurology services. Echo was performed today showing a reduced LV systolic function with an estimated EF of 35%, grade 1 diastolic dysfunction. Cardiology consulted as well. Review of Systems Review of Systems: ROS unobtainable: Yes unobtainable due to mental status and other (No family present) Constitutional: Constitutional: Reports as per HPI and Reports no additional constitutional complaints Eyes: Eyes: Reports as per HPI and Reports no additional eye complaints ENT: Reports system reviewed and no additional complaints, except as documented and Reports as per HPI Cardiovascular: Cardiovascular: Reports as per HPI and Reports no additional cardiovascular complaints Respiratory: Respir
--- NOTE | 2023-09-01 15:21 | WPDNEUROPN ---
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 Current problem appears to be due to the dose of Keppra where she appears to be an adequate dose of her lacosamide and a phenobarb. If necessity the dose of those medications like also be increased. Plan For now I will suggest to increase the dose of Keppra to 1000 mg twice a day and continue with lacosamide 200 mg twice a day and phenobarbital 97.6 daily. The dose of lacosamide can be increased up to 600 mg if necessary with phenobarb dose can be also increase but less desirable. She will require follow-up and hence I have advised her to be seen in the Neurology of his brain about 3 months so to monitor her progress. Hopefully that will prevent her being seen in emergency room so frequently and also improve the quality of her life. Since she was understanding of these. Subjective Date/time seen: 09/01/23 15:21 Interval history: Patient has not had any further seizures. Previous records were reviewed. Patient has history of surgery for aneurysm in the right frontal area. CT scan of brain has shown an area of right frontal encephalomalacia. There is also a clip noted in the right middle cerebral artery region. Patient's potassium was 3.1 but now this has been corrected the normal range. Patient think that she was taking only 750 mg of Keppra in addition to lacosamide and phenobarb in view of the side effects. But she is willing to work with the doses if he can not find happy medium for her. Review of Systems Review of Systems: All systems reviewed & are unremarkable except as noted in HPI and below Exam Narrative: Fully conscious alert oriented to self time place and person. She appears to communicate well. No aphasia or dysarthria. Cranial changes just to intact. Motor system moving both upper and lower limbs with normal strength. Deep tendon reflexes did not show any asymmetry. Tone appears symmetric. No involuntary movements seen. Sensory is grossly intact. Objective Data Vital Signs Vital Signs: Vital Signs - 24 hr 08/31/23 16:00 08/31/23 19:36 08/31/23 19:59 Temperature 36.7 C Pulse Rate 79 60 Respiratory Rate 18 Blood Pressure 133/69 Pulse Oximetry 100 100 Oxygen Delivery Nasal Cannula Oxygen Flow Rate 2 08/31/23 20:04 08/31/23 20:00 09/01/23 00:00 Temperature Pulse Rate 60 83 64 Respiratory Rate Blood Pressure Pulse Oximetry Oxygen Delivery Oxygen Flow Rate 09/01/23 04:00 09/01/23 05:04 09/01/23 08:55 Temperature 36.7 C Pulse Rate 81 107 H 79 Respiratory Rate 17 Blood Pressure 126/86 Pulse Oximetry 94 Oxygen Delivery Oxygen Flow Rate 09/01/23 08:30 09/01/23 08:00 09/01/23 14:00 Temperature 36.6 C Pulse Rate 92 Respiratory Rate 18 Blood Pressure 105/75 Pulse Oximetry 94 94 100 Oxygen Delivery Room Air Nasal Cannula Oxygen Flow Rate 2 Intake/Output Intake/Output: Intake & Output 08/29/23 08/30/23 08/31/23 09/01/23 23:59 23:59 23:59 23:59 Intake Total 584.4 1314 Output Total 50 1125 Balance 534.4 189 Meds/Results Medications: Active Medications Generic Name Dose Route Start Last Admin Trade Name Freq PRN Reason Stop Dose Admin Acetaminophen 1,000 mg 08/31/23 17:03 Acetaminophen 500 Mg Tablet PO Q6H PRN Pain or Fever Aspirin 81 mg 08/31/23 09:00 09/01/23 0
[2023-09-01] MEDS: levETIRAcetam 500 MG TABLET 1000 MG PO (20:41)
[2023-09-02] VITALS (10 sets, daily range): BP systolic 99–128; BP diastolic 61–76; PULSE 76–112; RESP 16–20; TEMP 36.1–36.9; O2SAT 93–98
[2023-09-02 05:49] LABS: Basophils Percent Auto 0.6 % (0.2-1.2); Eosinophils Absolute Auto 0.1 K/mm3 (0-0.3); Eosinophils Percent Auto 1.3 % (0-4.4); Hematocrit 35.2 % (37.0-47.0); Hemoglobin 10.8 g/dL (12.0-15.0); Immature Granulocyte Absolute 0.02 K/mm3 (0.00-0.031); Immature Granulocyte Percent A 0.4 % (0-0.5); Lymphocytes Absolute Auto 1.55 K/mm3 (0.9-3.2); Lymphocytes Percent Auto 28.9 % (18.3-44.2); Mean Corpuscular HGB Conc 30.7 g/dl (32-36); Mean Corpuscular Hemoglobin 27.6 pg (26-34); Mean Platelet Volume 10.2 fl (7.4-10.4); Monocytes Absolute Auto 0.6 K/mm3 (0.1-0.6); Monocytes Percent Auto 11.2 % (2.6-8.5); Neutrophils Absolute Auto 3.1 K/mm3 (1.3-6.7); Neutrophils Percent Auto 57.6 % (45.5-73.1); Platelet Count Result 298 k/mm3 (150-375); Red Blood Count 3.91 M/mm3 (4.2-5.4); Red Cell Distribution Width 15.9 % (11.5-14.5); White Blood Count 5.4 K/mm3 (4.5-10.0)
[2023-09-02 05:59] LABS: Alanine Aminotransferase 15 U/L (6-35); Albumin Level 3.5 g/dL (3.5-5.1); Alkaline Phosphatase 75 U/L (38-126); Anion Gap 4 mmol/L (4-12); Aspartate Amino Transferase 22 U/L (14-36); Bilirubin,Total 0.7 mg/dL (0.2-1.3); Blood Urea Nitrogen 9 mg/dL (7-17); Calcium 8.5 mg/dL (8.4-10.2); Carbon Dioxide 29 mmol/L (22-30); Chloride 105 mmol/L (98-107); Estimated CRCL calculation 74 ml/min; Estimated Glomerular Filt Rate > 60; Glucose 97 mg/dL (65-110); Magnesium 1.8 mg/dL (1.6-2.3); Potassium 3.3 mmol/L (3.4-5.0); Sodium 138 mmol/L (137-145)
--- NOTE | 2023-09-02 07:00 | PM.IMPN ---
Progress Note: A&P Assessment and Plan (1) Breakthrough seizure: Code(s): G40.919 - Epilepsy, unspecified, intractable, without status epilepticus Status: Acute Assessment and Plan: 08/31/23: Possibly medication noncompliance verses abnormal dosing of Keppra. We will dose Keppra 750 mg twice daily resume lacosamide and phenobarbital. Stat Neurology has seen patient also believes that the stated reconciliation dosing of Keppra does not make sense. Phenobarbital level is pending. 09/01/23: Phenobarbital level is pending Neuro consulted Continue phenobarbital Keppra increased to 1000 mg b.i.d. per neurology Continue lacosamide Continue seizure precautions 09/02/23: No change to current treatment plan (2) Encephalomalacia on imaging study: Code(s): G93.89 - Other specified disorders of brain Status: Acute Assessment and Plan: 08/31/23: Prior brain aneurysm knee with brain surgery with resultant seizures. Stable chronic finding on imaging large area encephalomalacia. 09/01/23: Of note, see above plan of care (3) Normocytic anemia: Code(s): D64.9 - Anemia, unspecified Status: Acute Assessment and Plan: 08/31/23: Stable slight anemia with hemoglobin 11.0 baseline is usually in the 10s-11s, no signs of bleeding or trauma. 09/01/23: Hemoglobin 10.6 No change 09/02/23: stable (4) Pulmonary edema: Code(s): J81.1 - Chronic pulmonary edema Status: Acute Assessment and Plan: 08/31/23: Home medication includes furosemide and carvedilol. No prior echocardiogram on file. Ordered echocardiogram. Continue home medication as well as can be verified. 09/01/23: Continue Lasix and carvedilol Echo showing reduced systolic function with an EF estimated to be 35%, grade 1 diastolic noncompliance. Will consult Cardiology based on this finding 09/02/23: continue with current plan of care. (5) Combined systolic and diastolic congestive heart failure: Code(s): I50.40 - Unspecified combined systolic (congestive) and diastolic (congestive) heart failure Status: Acute Assessment and Plan: 09/02/23: Echo showing reduced systolic function with an estimated EF of 35%, grade 1 diastolic noncompliance Cardiology consulted. Time Spent With Patient Time with patient: 25 - 35 minutes Subjective Date/time seen: 09/02/23 07:00 Interval history: 09/01/23: This is a 62-year-old female who presented on 08/31/2023 for evaluation of seizures. Patient previously on high-dose Keppra 1000 mg twice daily per home med rec and says 750 mg oral daily. Patient's daughter has been the primary caregiver she is unsure of what med she takes and it is possible that she did not have any of her seizure medication in a while. Workup in the hospital includes a head CT which shows chronic right frontal, parietal, and temporal and encephalomalacia consistent with old infarct, status post right middle cerebral artery aneurysm clipping. Chest x-ray showing mild congestive heart failure, mild infiltrate. EKG shows sinus rhythm, rate of 94, QTC 455. Initial labs showing white blood cell count 6.3, hemoglobin 11.0, potassium 3.1. Respiratory panel negative for influenza a and B, RSV, COVID. On examination today patient is alert and oriented x3, lying in the bed. She denies any fever, chills, nausea, vomiting, abdominal pain, chest pain, shortness a breath. She endorses a headache, and diarrhea. Labs today reveal hemoglobin of 10.6, otherwise unremarkable. Neurology consulted and increase the dose of Keppra to 1000 mg twice a day continue with lacosamide 200 mg twice a day and phenobarbital 97.6 daily. She is suggesting follow-up in 3 months with neurology services. Echo was performed today showing a reduced LV systolic function with an estimated EF of 35%, grade 1 diastolic dysfunction. Cardiology consulted as well. 09/02/23: Patient denies any new complaints today. Labs toda
--- NOTE | 2023-09-02 09:26 | PM.CNCAR ---
Assessment and Plan Assessment and plan (1) Heart failure with reduced ejection fraction: Code(s): I50.20 - Unspecified systolic (congestive) heart failure Status: Acute Assessment and Plan: LVEF 30-35%. In setting of seizures. This is a new diagnosis of cardiomyopathy for the patient. Will check a TSH level. Patient is clinically euvolemic. Continue home dose of PO Lasix. Continue Coreg 12.5mg BID. Will start Entresto. Eventually add Spironolactone and SGLT-2 inhibitor. Will eventually need ischemic evaluation, however, will defer it to the outpatient setting. Will need close outpatient follow up in Cardiology Clinic, will arrange follow up with us. 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 (3) Hypertension: Code(s): I10 - Essential (primary) hypertension Status: Acute Assessment and Plan: At goal. Continue Coreg. Adding Entresto as noted above. History of Present Illness History of Present Illness Consult date/time: 09/02/23 09:26 Requesting physician: Soheila Land APRN Consult reason: congestive heart failure Reason For Visit: Recurrent Seizures Narrative: We are consulted for congestive heart failure with reduced LVEF on echocardiogram. This is a 62 year old female with history of hypertension, seizure disorder, brain aneurysm who is admitted to the hospital after having several seizures as well as witnessed absence like seizure activity. Echocardiogram done this admission shows mildly enlarged LV, LVEF 30-35%, grade 1 diastolic dysfunction, mild biatrial dilatation, mild AI. Patient denies any prior cardiac history. She denies chest pain, shortness of breath, orthopnea. 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 Seizure disorder Surgical History Surgical History Surgical history unknown Social History Social History Smoking packs per day: 1 Smoking cigarettes per day: 20.0 Years smoked: 30 Smoking pack-years: 30.00 Smoking status: Former smoker Tobacco type: cigarettes Second hand tobacco smoke exposure: No Smoking end date: 09/01/19 Alcohol intake: never Substance use: never Do You Feel Safe in your Home?: Yes Lack of Transportation: No Lack of Food: Sometimes True Current Housing: I Have Housing Concerned About Future Housing: No Difficulty Paying Gas/Electric Bills: No Difficulty Paying for Meds: No Currently Unemployed: No Education: High School Diploma/GED Difficulty w/ Childcare or Family Care: No Gender identity (if verbalized by the patient): Female Spiritual care concerns: No Meds Home Medications and Allergies Home Medications Medication Instructions Recorded Confirmed Type duloxetine 60 mg capsule,delayed 60 mg PO DAILY 07/16/21 08/31/23 History release furosemide 40 mg tablet 40 mg PO DAILY 07/16/21 08/31/23 History levetiracetam 750 mg tablet 750 mg PO DAILY 07/16/21 08/31/23 History aspirin 81 mg tablet,delayed 81 mg PO DAILY 08/31/23 08/31/23 History release carvedilol 25 mg tablet 25 mg PO DAILY 08/31/23 08/31/23 History lacosamide 200 mg tablet 200 mg PO BID 08/31/23 08/31/23 History phenobarbital 97.2 mg tablet 97.2 mg PO DAILY 08/31/23 08/31/23 History Allergies Allergy/A
[2023-09-02] MEDS: POTASSIUM CHLORIDE 20 MEQ ER TABLET 40 MEQ PO (09:27)
[2023-09-02] MEDS: DULoxetine HCL 60 MG CAPSULE.DR PO (09:27)
[2023-09-02] MEDS: LACOSAMIDE (*CRX) 200 MG TABLET PO ×2 (09:34→16:45)
[2023-09-02] MEDS: PHENobarbital (*CRX) 100 MG TABLET PO (09:34)
[2023-09-02] MEDS: carvediloL 12.5 MG TABLET PO ×2 (09:34→20:08)
[2023-09-02] MEDS: ASPIRIN 81 MG ENTERIC TABLET PO (09:34)
[2023-09-02] MEDS: FUROSEMIDE 40 MG TABLET PO (09:34)
[2023-09-02] MEDS: levETIRAcetam 500 MG TABLET 1000 MG PO ×2 (09:34→20:08)
[2023-09-02] MEDS: SACUBITRIL/VALSARTAN 24-26 MG TABLET 1 TAB PO ×2 (09:39→20:08)
--- NOTE | 2023-09-02 13:27 | PCCCNOTE ---
On 09/02/23, the student, Hortencia Koroma, provided care and completed [facility] documentation on this patient. I have reviewed the student's documentation and agree with the findings.
[2023-09-03] VITALS (9 sets, daily range): BP systolic 119–140; BP diastolic 64–76; PULSE 69–99; RESP 18; TEMP 36.4–37.1; O2SAT 94–98
[2023-09-03 05:22] LABS: Basophils Percent Auto 0.6 % (0.2-1.2); Eosinophils Absolute Auto 0.1 K/mm3 (0-0.3); Eosinophils Percent Auto 1.3 % (0-4.4); Hematocrit 35.3 % (37.0-47.0); Hemoglobin 10.8 g/dL (12.0-15.0); Immature Granulocyte Absolute 0.01 K/mm3 (0.00-0.031); Immature Granulocyte Percent A 0.2 % (0-0.5); Lymphocytes Absolute Auto 1.77 K/mm3 (0.9-3.2); Lymphocytes Percent Auto 32.5 % (18.3-44.2); Mean Corpuscular HGB Conc 30.6 g/dl (32-36); Mean Corpuscular Hemoglobin 27.9 pg (26-34); Mean Corpuscular Volume 91.2 fl (80-100); Mean Platelet Volume 10.1 fl (7.4-10.4); Monocytes Absolute Auto 0.6 K/mm3 (0.1-0.6); Monocytes Percent Auto 11.7 % (2.6-8.5); Neutrophils Absolute Auto 2.9 K/mm3 (1.3-6.7); Neutrophils Percent Auto 53.7 % (45.5-73.1); Platelet Count Result 248 k/mm3 (150-375); Red Blood Count 3.87 M/mm3 (4.2-5.4); Red Cell Distribution Width 15.7 % (11.5-14.5); White Blood Count 5.5 K/mm3 (4.5-10.0)
[2023-09-03 05:43] LABS: Alanine Aminotransferase 15 U/L (6-35); Albumin Level 3.6 g/dL (3.5-5.1); Alkaline Phosphatase 72 U/L (38-126); Anion Gap 6 mmol/L (4-12); Aspartate Amino Transferase 26 U/L (14-36); Bilirubin,Total 0.6 mg/dL (0.2-1.3); Blood Urea Nitrogen 12 mg/dL (7-17); Calcium 8.5 mg/dL (8.4-10.2); Carbon Dioxide 25 mmol/L (22-30); Chloride 104 mmol/L (98-107); Estimated CRCL calculation 85 ml/min; Estimated Glomerular Filt Rate > 60; Glucose 101 mg/dL (65-110); Magnesium 1.9 mg/dL (1.6-2.3); Potassium 4.2 mmol/L (3.4-5.0); Sodium 135 mmol/L (137-145)
[2023-09-03] MEDS: levETIRAcetam 500 MG TABLET 1000 MG PO (09:25)
[2023-09-03] MEDS: FUROSEMIDE 40 MG TABLET PO (09:26)
[2023-09-03] MEDS: carvediloL 12.5 MG TABLET PO (09:26)
[2023-09-03] MEDS: DULoxetine HCL 60 MG CAPSULE.DR PO (09:26)
[2023-09-03] MEDS: ASPIRIN 81 MG ENTERIC TABLET PO (09:27)
[2023-09-03] MEDS: SACUBITRIL/VALSARTAN 24-26 MG TABLET 1 TAB PO (09:27)
[2023-09-03] MEDS: PHENobarbital (*CRX) 100 MG TABLET PO (09:27)
[2023-09-03] MEDS: LACOSAMIDE (*CRX) 200 MG TABLET PO ×2 (09:28→16:47)
--- NOTE | 2023-09-03 10:10 | PM.DS ---
DS: Admitting Diagnosis Discharge Date 09/03/23 Admitting Diagnosis Breakthrough Seizures Encephalomalacia on imaging normocytic anemia pulmonary edema DS: Discharge Diagnosis Discharge Diagnosis (1) Breakthrough seizure: Code(s): G40.919 - Epilepsy, unspecified, intractable, without status epilepticus Status: Acute (2) Encephalomalacia on imaging study: Code(s): G93.89 - Other specified disorders of brain Status: Acute (3) Normocytic anemia: Code(s): D64.9 - Anemia, unspecified Status: Acute (4) Pulmonary edema: Code(s): J81.1 - Chronic pulmonary edema Status: Acute (5) Combined systolic and diastolic congestive heart failure: Code(s): I50.40 - Unspecified combined systolic (congestive) and diastolic (congestive) heart failure Status: Acute DS: Summary Hospital Course Reason for hospitalization: Breakthrough Seizures Encephalomalacia on imaging normocytic anemia pulmonary edema Hospital Course: 09/01/23: This is a 62-year-old female who presented on 08/31/2023 for evaluation of seizures.? Patient previously on high-dose Keppra 1000 mg twice daily per home med rec and says 750 mg oral daily.? Patient's daughter has been the primary caregiver she is unsure of what med she takes and it is possible that she did not have any of her seizure medication in a while.? Workup in the hospital includes a head CT which shows chronic right frontal, parietal, and temporal and encephalomalacia consistent with old infarct, status post right middle cerebral artery aneurysm clipping.? Chest x-ray showing mild congestive heart failure, mild infiltrate.? EKG shows sinus rhythm, rate of 94, QTC 455.? Initial labs showing white blood cell count 6.3, hemoglobin 11.0, potassium 3.1.? Respiratory panel negative for influenza a and B, RSV, COVID.? On examination today patient is alert and oriented x3, lying in the bed.? She denies any fever, chills, nausea, vomiting, abdominal pain, chest pain, shortness a breath.? She endorses a headache, and diarrhea.? Labs today reveal hemoglobin of 10.6, otherwise unremarkable.? Neurology consulted and increase the dose of Keppra to 1000 mg twice a day continue with lacosamide 200 mg twice a day and phenobarbital 97.6 daily.? She is suggesting follow-up in 3 months with neurology services.? Echo was performed today showing a reduced LV systolic function with an estimated EF of 35%, grade 1 diastolic dysfunction.? Cardiology consulted as well. 09/02/23: Patient denies any new complaints today.? Labs today reveal hgb 10.8, potassium 3.3, otherwise normal. Cardiology to see patient today regarding Echo results.? She denies any seizure activity today. 09/03/23: Patient has no new complaints today. Labs today reveal Hgb 10.8,Na+135, otherwise essentially normal. Patient is stable for discharge today. She will need to follow up with primary care physician, neurologist, and [employer] for follow up appointments. Keppra increased to 1000mg and she was started on Entresto due to her CHF. Final Diagnosis: Breakthrough seizures, Combined systolic and diastolic CHF Status at Discharge Cognitive/behavioral status at discharge: Alert and oriented x4 Functional status at discharge: independent ambulation Overall status at discharge: patient is progressing back to baseline Time Spent with Patient Time attestation: Total time spent providing and/or coordinating discharge services: Time spent: Greater than 30 minutes Exam Narrative: General: In no acute distress, well nourished Head: atraumatic, no encephalopathy Eyes: EOMI, PERRLA, sclera clear ENT: moist mucous membranes, nasal passages clear, reports headache Neck: supple, no JVD, no adenopathy, trachea midline Cardiac: Normal S1 and S2. RRR, No murmur, gallops or friction rubs, peripheral pulses intact. Respiratory: Lungs clear to auscultation, no adventitious lung sounds, currently on room air Gastrointestinal: soft, non-dis
== END 2023-09-03 18:40 | disposition home or self-care (01) ==
LOC: ANHED 21:40 → ANH2MED 08-31 02:30
PROVIDERS: Internal Medicine; Nurse Practitioner; Admitting Provider Internal Medicine; Emergency Provider Student in an Organized Health Care Education/Training Program; PCP Internal Medicine; Visit Provider Family Medicine
DX: G40.219 Localization-related (focal) (partial) symptomatic epilepsy and epileptic syndromes with complex partial seizures, intractable, without status epilepticus (principal); G93.89 Other specified disorders of brain; D64.9 Anemia, unspecified; J81.1 Chronic pulmonary edema; I11.0 Hypertensive heart disease with heart failure; I50.40 Unspecified combined systolic (congestive) and diastolic (congestive) heart failure; E87.6 Hypokalemia; I67.1 Cerebral aneurysm, nonruptured; I67.2 Cerebral atherosclerosis; I35.1 Nonrheumatic aortic (valve) insufficiency; R05.9 Cough, unspecified; Z20.822 Contact with and (suspected) exposure to COVID-19; Z79.82 Long term (current) use of aspirin; Z79.899 Other long term (current) drug therapy; Z87.891 Personal history of nicotine dependence
CPT/HCPCS: 36415; 36600; 70450; 71045; 80053; 80184; 82805; 83735; 84443; 85025; 87637; 93005; 93306; 96365; 96372; 96375; 99285; A9270; G0379; J1953; J2060; J2250